=== PATIENT | female | born 1955 | race Caucasian/White ===

== ENCOUNTER 2020-01-21 12:15 | Inpatient (IN) | payer MEDICARE, MEDICAID ==
[~2020-01-21] VITALS: Ht 162.5 cm; Wt 73.6 kg
[~2020-01-21 12:15] MED LIST: LORazepam INJ 2 MG/ML (ATIVAN) VIAL ONE
[2020-01-21] MEDS ORDERED: HALOPERIDOL 5 MG/ML (HALDOL) VIAL ONE (12:21)
[2020-01-21] MEDS ORDERED: LORazepam INJ 2 MG/ML (ATIVAN) VIAL ONE (12:29)
--- NOTE | 2020-01-21 13:10 | NUR ---
1303 PREOXYGENATED VIA BVM. SPO2 98%. TV 450 FIO2 40% PEEP 7 RATE 18 1304 10MG ETOMIDATE IV PUSH 1305 50MG ROCURONIUM IV PUSH 1306 INTUBATION COMPLETE. + COLOR CHANGE. + BILAT BREATH SOUNDS. 7.5 ET TUBE 23 AT GUMS. 1310 16FR OG (LOW INTERMITTENT SUCTION).
--- NOTE | 2020-01-21 13:51 | NUR ---
1351 5MG VERSED IV PUSH PER PROVIDER VERBAL ORDER.
--- NOTE | 2020-01-21 14:18 | NUR ---
100MCG FENTANYL PUSH BY DERRICK SANCHEZ APRN
[2020-01-21] MEDS: fentaNYL DRIP PRE-MIX 250 ML IV SCH (14:33)
--- NOTE | 2020-01-21 15:00 | NUR ---
50MG ROCURONIUM IV PUSH PER PROVIDER ORDER.
[2020-01-21] MEDS ORDERED: NS 100 ML (IVPB) BAG IV ONE (16:00)
[2020-01-21] MEDS ORDERED: CATHETER FLUSH 10 ML SYR IV PRN (16:00)
[2020-01-21] MEDS ORDERED: HOLD METFORMIN - RECEIVED CONTRAST 20 ML VIAL IV SCH (16:00)
[2020-01-21] MEDS ORDERED: IOHEXOL 350 MG/ML 100 ML (OMNIPAQUE 350) VIAL IV ONE (16:00)
--- NOTE | 2020-01-21 16:02 | Diagnostic Imaging Report ---
PROCEDURE: CT head without contrast. TECHNIQUE: Multiple contiguous axial images were obtained through the brain without the use of intravenous contrast. Auto Exposure Controls were utilized during the CT exam to meet ALARA standards for radiation dose reduction. INDICATION: Altered mental status. CORRELATION is made with prior head CT from 11/06/2015. Ventricles and sulci appear stable. No sulcal effacement or midline shift is identified. No acute intra-axial or extra-axial hemorrhage is detected. Cisterns are patent. Visualized paranasal sinuses are clear. IMPRESSION: No acute intracranial process is detected. Dictated by: Dictated on workstation # [id number]
--- NOTE | 2020-01-21 16:14 | NUR ---
TERRENCE BENEDICT SPEAKING WITH PT SON AT THIS TIME.
--- NOTE | 2020-01-21 16:15 | Diagnostic Imaging Report ---
PROCEDURE: CT angiography of the chest with contrast and CT abdomen and pelvis with contrast. TECHNIQUE: Multiple contiguous axial images were obtained through the chest, abdomen and pelvis after administration of intravenous contrast. 3D MIP reconstructed CT angiography acquisitions of the aorta were then performed. Auto Exposure Controls were utilized during the CT exam to meet ALARA standards for radiation dose reduction. INDICATION: Altered mental status. COVID-19 infection in October. Abdominal distention. FINDINGS: CHEST: ET tube has tip at the level of the jose juan and near the left mainstem bronchus. Retraction of approximately 3 cm is recommended. Enteric tube courses through the esophagus and terminates in the mid stomach. No pulmonary emboli. Normal caliber thoracic aorta without dissection. No pleural effusion. No pneumothorax. Consolidations are present in the posterior aspect of both lower lobes, greater on the right. There are some groundglass opacities and interlobular septal thickening in the upper lobes. No concerning focal osseous lesion. ABDOMEN AND PELVIS: No free intraperitoneal air or fluid. Diffuse hypoattenuation of liver is indicative of hepatic steatosis. No focal mass lesion. Cholecystectomy. No biliary duct dilatation. The spleen and pancreas are normal. No adrenal mass. Kidneys enhance symmetrically without mass lesion or obstruction. The urinary bladder is partially filled with a Mcmahon catheter in place. Appendix is normal. No bowel obstruction or pericolonic inflammatory change. Ectasia of the infrarenal abdominal aorta measuring up to 2.8 cm. No dissection within the abdominal aorta. Grade 1 anterolisthesis of L5 on S1 due to severe facet osteoarthritis. Focal osseous lesions. IMPRESSION: 1. No pulmonary emboli or acute aortic syndrome. 2. ET tube has tip at the level of the jose juan. Recommend 3 cm retraction and follow-up radiograph imaging to confirm adequate position. 3. Bilateral pulmonary consolidations with scattered groundglass opacities. This may be due to sequelae of COVID-19, although superimposed bacterial infection could be present. 4. No obstructive or inflammatory process in the abdomen and pelvis. 5. Diffuse hepatic steatosis. Dictated by: Dictated on workstation # [id number]
--- NOTE | 2020-01-21 16:49 | NUR ---
Otto Waller APRN pulled ET tube back to 21 @ the gums.
[2020-01-21] MEDS ORDERED: LACTATED RINGERS 1,000 ML IV ONE (16:51)
--- NOTE | 2020-01-21 16:55 | NUR ---
100MCG FENTANYL PUSH PER VERBAL ORDER FROM PROVIDER.
[2020-01-21] MEDS: LACTATED RINGERS 1,000 ML IV SCH (17:39)
--- NOTE | 2020-01-21 17:45 | NUR ---
LEVOPHED INFUSION INTIATED AT 0.1MCG/KG/HR IN TRANSIT TO ICU6 D/T BP 83/39.
[2020-01-21] MEDS: PANTOPRAZOLE 40 MG (PROTONIX) VIAL IV SCH (17:48)
[2020-01-21] MEDS ORDERED: PIPERACILLIN/TAZO 4.5 GM/NS 100 ML IV NR ×2 (18:00)
[2020-01-21] MEDS: fentaNYL 1,250 MCG/NS 250 ML DRIP IV SCH (18:10)
[2020-01-21] MEDS ORDERED: DexMEDEtomidine PRE MIX 100 ML IV ONE (18:15)
[2020-01-21] MEDS: 1/2 NS IV SOLUTION 1,000 ML IV SCH (18:21)
--- NOTE | 2020-01-21 18:23 | NUR ---
TELE-ICU NOTIFIED X2 REGARDING PTS HYPOTENSION. DR TO ENTER NEW ORDERS. PROPOFOL ON STANDBY. IVF BOLUS INFUSING.
[2020-01-21] MEDS: DexMEDEtomidine PRE MIX 100 ML IV SCH ×2 (18:37→21:43)
--- NOTE | 2020-01-21 18:41 | NUR ---
[facility] CALLED AND WILL FAX HOME MED LIST.
--- NOTE | 2020-01-21 18:48 | NUR ---
BP 109/74, PT TRYING TO SIT UP IN BED, FIGHTING VENT. PROPOFOL RESTART AT 15MCG/KG/MIN, FENTANYL INFUSING AT 100MCG/HR, AND PRECEDEX AT 0.2MCG/KG/HR
[2020-01-21] MEDS ORDERED: FLU QUADRIvalent (3YOA+) 60 mcg/0.5 ml 2020-21 (AFLURIA) IM ONE (19:00)
[2020-01-21] MEDS ORDERED: ETOMIDATE IV SOLN 20 MG/10 ML VIAL IV ONE (20:23)
[2020-01-21] MEDS ORDERED: fentaNYL INJECTION 100 MCG/2 ML AMP IV ONE (20:23)
[2020-01-21] MEDS ORDERED: ROCURONIUM 10 MG/ML 5 ML SYRINGE IV ONE (20:23)
[2020-01-21] MEDS ORDERED: MIDAZOLAM 5 MG/5 ML (VERSED) VIAL IJ ONE (20:23)
[2020-01-21 22:24] VITALS: BP 100/62
[2020-01-22] MEDS ORDERED: LACTATED RINGERS 1,000 ML IV ONE
[2020-01-22] MEDS ORDERED: PROPOFOL DRIP (ICU) 100 ML IV ONE
[2020-01-22] MEDS ORDERED: LACTATED RINGERS 1,000 ML IV SCH
[2020-01-22] MEDS ORDERED: NOREPINEPHRINE 4 MG/250 ML 250 ML IV ONE
[2020-01-22] MEDS ORDERED: DexMEDEtomidine PRE MIX 100 ML IV ONE
[2020-01-22] MEDS: PIPERACILLIN/TAZO 4.5 GM/NS 100 ML IV SCH ×6 (00:26→17:06)
[2020-01-22] MEDS: 1/2 NS IV SOLUTION 1,000 ML IV SCH ×13 (00:27→23:30)
[2020-01-22] MEDS: DexMEDEtomidine PRE MIX 100 ML IV SCH ×5 (01:25→21:16)
[2020-01-22] MEDS: LACTATED RINGERS 1,000 ML IV SCH ×3 (02:05→17:03)
[2020-01-22 02:20] VITALS: BP 81/56
[2020-01-22] MEDS: fentaNYL 1,250 MCG/NS 250 ML DRIP IV SCH ×3 (02:40→23:40)
[2020-01-22 03:31] LABS: BASOPHILS % (AUTO) 0 % (0-10)
[2020-01-22 03:33] LABS: EOSINOPHILS # (AUTO) 0.2 10^3/uL (0.0-0.3); EOSINOPHILS % (AUTO) 3 % (0-10); HEMATOCRIT 30 % (35-52); HEMOGLOBIN 9.5 g/dL (11.5-16.0); LYMPHOCYTES # (AUTO) 1.3 10^3/uL (1.0-4.0); LYMPHOCYTES % (AUTO) 16 % (12-44); MEAN CORPUSCULAR HEMOGLOBIN 29 pg (25-34); MEAN CORPUSCULAR HGB CONC 31 g/dL (32-36); MEAN CORPUSCULAR VOLUME 91 fL (80-99); MEAN PLATELET VOLUME 10.1 fL (9.0-12.2); MONOCYTES % (AUTO) 12 % (0-12); NEUTROPHILS # (AUTO) 5.7 10^3/uL (1.8-7.8); NEUTROPHILS % (AUTO) 69 % (42-75); PLATELET COUNT 408 10^3/uL (130-400); WHITE BLOOD COUNT 8.3 10^3/uL (4.3-11.0)
[2020-01-22 03:45] LABS: CHLORIDE 113 MMOL/L (98-107); POTASSIUM 3.2 MMOL/L (3.6-5.0); SODIUM 141 MMOL/L (135-145)
[2020-01-22 03:46] LABS: CALCIUM 7.9 MG/DL (8.5-10.1)
[2020-01-22 03:47] LABS: GLUCOSE 127 MG/DL (70-105)
[2020-01-22 03:48] LABS: CARBON DIOXIDE 16 MMOL/L (21-32)
[2020-01-22 03:50] LABS: CREATININE SERUM 0.72 MG/DL (0.60-1.30); GFR ESTIMATED > 60
[2020-01-22 03:51] LABS: BUN/CREATININE RATIO 10
[2020-01-22 03:53] LABS: MAGNESIUM 1.8 MG/DL (1.6-2.4)
[2020-01-22] MEDS: POTASSIUM CL 10MEQ/50ML IVPB 50 ML IV SCH ×5 (04:42→08:21)
[2020-01-22] MEDS: KCL 20 MEQ TAB (K-DUR) PO SCH (04:43)
[2020-01-22] MEDS: MAGNESIUM 1 GM/100 ML IVPB 100 ML IV SCH (04:43)
[2020-01-22 06:00] LABS: ABG OXYGEN SATURATION 97 % (94-100); ABG PCO2 29 MMHG (35-45); ABG PH 7.43 (7.37-7.43); ABG PO2 123 MMHG (79-93); ABG TCO2 19.8 MMOL/L (21.0-31.0); ALLENS TEST POSITIVE; INSPIRED O2 50; PATIENT TEMP 35.6; VENTILATOR YES
[2020-01-22 06:43] VITALS: BP 90/53
--- NOTE | 2020-01-22 06:56 | Diagnostic Imaging Report ---
INDICATION: Dyspnea. Comparison made with prior examination of 11/06/2015. FINDINGS: Heart size normal. There is some venous congestion. There are mild patchy bilateral pulmonary infiltrates. No pleural effusion or pneumothorax. ET and NG tubes are in satisfactory position IMPRESSION: Patchy bilateral pulmonary infiltrates Mild central pulmonary venous congestion. Dictated by: Dictated on workstation # [id number]
[2020-01-22] MEDS: PANTOPRAZOLE 40 MG (PROTONIX) VIAL IV SCH ×2 (08:22→17:06)
[2020-01-22] MEDS ORDERED: LORazepam INJ 2 MG/ML (ATIVAN) VIAL ONE (09:43)
[2020-01-22 10:21] VITALS: BP 76/51
[2020-01-22] MEDS: RT-ALBUTEROL INHALER HFA (VENTOLIN HFA) 18 GM IH SCH ×3 (10:21→21:24)
[2020-01-22] MEDS ORDERED: NS IV 1000 ML 1,000 ML ONE (10:24)
--- NOTE | 2020-01-22 10:48 | History & Physical-Hospitalist ---
History of Present Illness HPI/Chief Complaint Patient is [facility] resident with history of advanced dementia who typically is reported as pleasant and cooperative. She became quite agitated screaming obscenities and was unconsolable for unknown reason. She is unable to give any history and was writhing in bed a threat to her self as well as likely staff. Emergency room physician gave Ativan initially followed by Kong but the patient remained combative and agitated. She had been diagnosed with Covid in October but did not require hospitalization at that time and was not having any infectious symptoms according to the emergency room physician. She ultimately required mechanical intubation for sedation and was transferred to the intensive care unit. Upon my arrival the patient was on propofol and fentanyl and was resting comfortably. Attempts at decreasing propofol did lead to the patient waking up and attempting to get out of bed and pull her lines out. Date Seen 01/22/20 Time Seen by a Provider: 07:30 Attending Physician Romel Talavera MD PCP Jairo Daley DO Referring Physician Date of Admission Jan 21, 2020 at 16:20 Home Medications & Allergies Home Medications Reviewed patient Home Medication Reconciliation performed by pharmacy medication reconciliations veterinary assistant technician and/or nursing. Patients Allergies have been reviewed. Allergies Allergies Coded Allergies No Known Drug Allergies (Krirohlkkw10/11/20) Past Wmnypon-Jxqqrn-Sdcdvt Hx Past Med/Social Hx: Reviewed and Corrections made Patient Social History Alcohol Use: Denies Use Recreational Drug Use: No Smoking Status: Unknown if Ever Smoked 2nd Hand Smoke Exposure: No Recent Foreign Travel: No Contact w/other who traveled: No Recent Hopitalizations: No Recent Infectious Disease Expo: Yes Immunizations Up To Date Date of Influenza Vaccine: Nov 10, 2018 Seasonal Allergies Seasonal Allergies: No Past Medical History Cardiac: High Cholesterol Neurological: Dementia Gastrointestinal: Gastroesophageal Reflux Endocrine: Hypothyroidsim HEENT: Cataract Psychosocial: Anxiety, Bipolar, Personality Disorder Family History Patient reports no known family medical history. Review of Systems Constitutional: see HPI Physical Exam Physical Exam Vital Signs Vital Signs - First Documented 01/21/20 01/21/20 01/21/20 12:15 17:15 17:30 Temp 36.7 Pulse 123 Resp 26 B/P (MAP) 129/101 (110) Pulse Ox 97 O2 Delivery OxyMask O2 Flow Rate 10.00 FiO2 50 Capillary Refill : Less Than 3 Seconds Height, Weight, BMI Height: '" Weight: lbs. oz. kg; 25.82 BMI Method: General Appearance: No Apparent Distress (Sedated on mechanical ventilation) Respiratory: Chest Non Tender, Lungs Clear, Normal Breath Sounds, No Accessory Muscle Use, No Respiratory Distress Cardiovascular: Regular Rate, Rhythm, No Edema, No Gallop, No JVD, No Murmur, Normal Peripheral Pulses Gastrointestinal: Distended (Mild soft no reaction to palpation bowel sounds hypoactive no mass organomegaly palpated) Extremity: Normal Capillary Refill, Normal Inspection, Normal Range of Motion, Non Tender, No Calf Tenderness, No Pedal Edema Results Results/Procedures Labs Laboratory Tests 01/22/20 03:20 Patient resulted labs reviewed. Assessment/Plan Admission Diagnosis 1. Severe agitated delirium patient threat to herself and others requiring sedation and mechanical ventilation. Attempts at weaning unsuccessful from propofol. No clear etiology. Patient being treated with antibiotics as she does have bibasilar infiltrates although this may be residual from previous Co vid infection. There is a concern with a mild white count elevation of the possibility of a secondary bacterial infection. Abdomen is mildly distended but decreased bowel sounds and no CT abnormalities noted we will continue to monitor for evidence for ischemia or other abdominal pathology contributing to delirium. 2. Reported Alzheimer's dementia. 3. Hypothyroidism presumed on thyroid replacement patient will be fine for several days off therapy will hold for now. Admission Status: Inpatient Order (span 2 midnights) Reason for Inpatient Admission: See above Critical Care Ventilator Management Clinical Quality Measures DVT/VTE Risk/Contraindication: Risk Factor Score Per Nursin RFS Level Per Nursing on Admit: 4+=Very High ROMEL TALAVERA MD Jan 22, 2020 10:48
--- NOTE | 2020-01-22 11:49 | Progress Note - Hospitalist ---
Subjective HPI/CC On Admission Date Seen by Provider: Jan 22, 2020 Time Seen by Provider: 11:00 Patient is [facility] resident with history of advanced dementia who typically is reported as pleasant and cooperative. She became quite agitated screaming obscenities and was unconsolable for unknown reason. She is unable to give any history and was writhing in bed a threat to her self as well as likely staff. Emergency room physician gave Ativan initially followed by Kong but the patient remained combative and agitated. She had been diagnosed with Covid in October but did not require hospitalization at that time and was not having any infectious symptoms according to the emergency room physician. She ultimately required mechanical intubation for sedation and was transferred to the intensive care unit. Upon my arrival the patient was on propofol and fentanyl and was resting comfortably. Attempts at decreasing propofol did lead to the patient waking up and attempting to get out of bed and pull her lines out. Subjective/Events-last exam Patient still agitated even on vent SBP is low hindering adequate sedation Reviewed meds and labs and imaging Focused Exam Lactate Level 01/21/20 16:55: Lactic Acid Level 0.99 01/22/20 16:17: Lactic Acid Level 0.81 Objective Exam Vital Signs Vital Signs Date Time Temp Pulse Resp B/P (MAP) Pulse Ox O2 Delivery O2 Flow Rate FiO2 01/23/20 06:00 42 18 94/57 (69) 96 Mechanical Ventilator 25.00 01/23/20 04:45 36.1 01/23/20 03:20 25 Capillary Refill : Less Than 3 Seconds General Appearance: Anxious, Chronically ill, Mild Distress Respiratory: Normal Breath Sounds, Decreased Breath Sounds Cardiovascular: Regular Rate, Rhythm Neurologic/Psychiatric: Disoriented, Other (sedated partially) Results/Procedures Lab Laboratory Tests 01/22/20 16:17 01/23/20 04:35 Patient resulted labs reviewed. Assessment/Plan Assessment and Plan Assess & Plan/Chief Complaint Assessment: Severe agitation requiring ventilator management PNA on Zosyn COVID-19 Dementia Hypothyroidism Plan: Vent management Sedation Abx Critical Care Ventilator Management Diagnosis/Problems Diagnosis/Problems (1) Ventilator dependence (2) COVID-19 (3) Dementia Clinical Quality Measures DVT/VTE Risk/Contraindication: Risk Factor Score Per Nursin RFS Level Per Nursing on Admit: 4+=Very High ENA FANG DO Jan 22, 2020 11:48
[2020-01-22 14:31] VITALS: BP 80/56
--- NOTE | 2020-01-22 15:30 | NUR ---
call placed to EICU regarding patient urine output. Put orders in for labs, et to increase fluids to 125ml/hr
[2020-01-22 16:24] LABS: HEMOGLOBIN 9.2 g/dL (11.5-16.0); MEAN PLATELET VOLUME 9.7 fL (9.0-12.2); WHITE BLOOD COUNT 8.3 10^3/uL (4.3-11.0)
[2020-01-22 16:34] LABS: CHLORIDE 116 MMOL/L (98-107); POTASSIUM 3.8 MMOL/L (3.6-5.0); SODIUM 140 MMOL/L (135-145)
[2020-01-22 16:35] LABS: CALCIUM 7.6 MG/DL (8.5-10.1)
[2020-01-22 16:36] LABS: GLUCOSE 115 MG/DL (70-105)
[2020-01-22 16:38] LABS: CARBON DIOXIDE 16 MMOL/L (21-32)
[2020-01-22 16:40] LABS: CREATININE SERUM 0.76 MG/DL (0.60-1.30); GFR ESTIMATED > 60
[2020-01-22 16:41] LABS: BUN/CREATININE RATIO 8
[2020-01-22] MEDS: fentaNYL DRIP PRE-MIX 250 ML IV SCH (18:19)
[2020-01-22 19:03] VITALS: BP 93/62
[2020-01-22 21:24] VITALS: BP 88/55
[2020-01-23] MEDS: DexMEDEtomidine PRE MIX 100 ML IV SCH ×6 (00:30→20:15)
[2020-01-23] MEDS: PIPERACILLIN/TAZO 4.5 GM/NS 100 ML IV SCH ×6 (00:46→16:02)
[2020-01-23] MEDS: LACTATED RINGERS 1,000 ML IV SCH ×3 (00:46→17:25)
[2020-01-23 03:12] LABS: ABG BASE EXCESS -14.9 MMOL/L (-2.5-2.5); ABG OXYGEN SATURATION 57 % (94-100); ABG PCO2 23 MMHG (35-45); ABG TCO2 11.4 MMOL/L (21.0-31.0)
[2020-01-23 03:13] LABS: ALLENS TEST POSITIVE; INSPIRED O2 35; PATIENT TEMP 36.1; VENTILATOR YES
[2020-01-23 03:14] LABS: ABG PH 7.28 (7.37-7.43)
[2020-01-23 03:15] LABS: ABG PO2 33 MMHG (79-93)
[2020-01-23] MEDS: RT-ALBUTEROL INHALER HFA (VENTOLIN HFA) 18 GM IH SCH ×6 (03:19→23:13)
[2020-01-23 03:20] VITALS: BP 109/61
[2020-01-23] MEDS: fentaNYL DRIP PRE-MIX 250 ML IV SCH (05:09)
[2020-01-23 05:11] LABS: BASOPHILS % (AUTO) 0 % (0-10); EOSINOPHILS # (AUTO) 0.3 10^3/uL (0.0-0.3); EOSINOPHILS % (AUTO) 3 % (0-10); HEMATOCRIT 32 % (35-52); HEMOGLOBIN 9.6 g/dL (11.5-16.0); LYMPHOCYTES # (AUTO) 1.4 10^3/uL (1.0-4.0); LYMPHOCYTES % (AUTO) 14 % (12-44); MEAN CORPUSCULAR HEMOGLOBIN 28 pg (25-34); MEAN CORPUSCULAR HGB CONC 30 g/dL (32-36); MEAN CORPUSCULAR VOLUME 94 fL (80-99); MEAN PLATELET VOLUME 11.2 fL (9.0-12.2); MONOCYTES # (AUTO) 1.4 10^3/uL (0.0-1.0); MONOCYTES % (AUTO) 13 % (0-12); NEUTROPHILS # (AUTO) 7.2 10^3/uL (1.8-7.8); NEUTROPHILS % (AUTO) 69 % (42-75); PLATELET COUNT 329 10^3/uL (130-400); WHITE BLOOD COUNT 10.4 10^3/uL (4.3-11.0)
[2020-01-23 05:31] LABS: CHLORIDE 118 MMOL/L (98-107); POTASSIUM 3.7 MMOL/L (3.6-5.0); SODIUM 143 MMOL/L (135-145)
[2020-01-23 05:32] LABS: CALCIUM 7.8 MG/DL (8.5-10.1)
[2020-01-23 05:33] LABS: GLUCOSE 115 MG/DL (70-105)
[2020-01-23 05:35] LABS: CARBON DIOXIDE 12 MMOL/L (21-32)
[2020-01-23 05:37] LABS: CREATININE SERUM 0.71 MG/DL (0.60-1.30); GFR ESTIMATED > 60; PHOSPHORUS 3.1 MG/DL (2.3-4.7)
[2020-01-23 05:38] LABS: BUN/CREATININE RATIO 8
[2020-01-23 05:39] LABS: MAGNESIUM 1.7 MG/DL (1.6-2.4)
[2020-01-23] MEDS: MAGNESIUM 1 GM/100 ML IVPB 100 ML IV SCH ×3 (06:44→08:12)
[2020-01-23] MEDS: POTASSIUM CL 10MEQ/50ML IVPB 50 ML IV SCH (06:45)
[2020-01-23] MEDS: KCL 20 MEQ TAB (K-DUR) PO SCH (06:45)
--- NOTE | 2020-01-23 06:50 | NUR ---
Reported low output for the last four hours, of 80mL. Total for the 12 hour shift is 300mL.
[2020-01-23 07:16] VITALS: BP 87/63
[2020-01-23] MEDS: PANTOPRAZOLE 40 MG (PROTONIX) VIAL IV SCH (08:02)
[2020-01-23] MEDS ORDERED: KETAMINE HCL 100 MG/ML 5 ML VIAL IM ONE (08:30)
--- NOTE | 2020-01-23 09:25 | Diagnostic Imaging Report ---
CHEST 1 VIEW, AP/PA ONLY Indication: Intubation Comparison: 01/22/2020 Findings: ET tube has tip 2.5 cm above the jose juan. Stable enteric tube coursing into the stomach. Bilateral perihilar and peripheral pulmonary opacities have not substantially changed. No pleural effusion or pneumothorax. Normal cardiomediastinal silhouette. Impression: 1. Stable support devices. 2. No change in right greater than left pulmonary opacities. Dictated by: Dictated on workstation # [id number]
[2020-01-23] MEDS: fentaNYL 1,250 MCG/NS 250 ML DRIP IV SCH ×3 (10:31→20:22)
[2020-01-23 10:43] VITALS: BP 79/60
--- NOTE | 2020-01-23 11:47 | Progress Note - Hospitalist ---
Subjective HPI/CC On Admission Date Seen by Provider: Jan 23, 2020 Time Seen by Provider: 07:50 Patient is long term resident with history of advanced dementia who typically is reported as pleasant and cooperative. She became quite agitated screaming obscenities and was unconsolable for unknown reason. She is unable to give any history and was writhing in bed a threat to her self as well as likely staff. Emergency room physician gave Ativan initially followed by Kong but the patient remained combative and agitated. She had been diagnosed with Covid in October but did not require hospitalization at that time and was not having any infectious symptoms according to the emergency room physician. She ultimately required mechanical intubation for sedation and was transferred to the intensive care unit. Upon my arrival the patient was on propofol and fentanyl and was resting comfortably. Attempts at decreasing propofol did lead to the patient waking up and attempting to get out of bed and pull her lines out. Subjective/Events-last exam Patient sedated on vent. Attempts at lightening dipper Van lead to recurrence of agitated behavior with the patient trying to climb out of bed and extubate herself. No other difficulties noted. Patient does have some diminishment in saturations when agitated only and fighting the vent. Focused Exam Lactate Level 01/21/20 16:55: Lactic Acid Level 0.99 01/22/20 16:17: Lactic Acid Level 0.81 Objective Exam Vital Signs Vital Signs Date Time Temp Pulse Resp B/P (MAP) Pulse Ox O2 Delivery O2 Flow Rate FiO2 01/23/20 11:00 49 18 85/54 (63) 96 Mechanical Ventilator 25.00 01/23/20 08:21 36 01/23/20 07:26 36.2 Capillary Refill : Less Than 3 Seconds General Appearance: No Apparent Distress Respiratory: Chest Non Tender, Lungs Clear, Normal Breath Sounds, No Accessory Muscle Use, No Respiratory Distress Cardiovascular: Regular Rate, Rhythm, No Edema, No Gallop, No JVD, No Murmur, Normal Peripheral Pulses Gastrointestinal: Distended (Mild there is no response to palpation of the abdomen the abdomen is soft bowel sounds are present today but hypoactive no organomegaly noted. No borborygmi noted.) Results/Procedures Lab Laboratory Tests 01/22/20 16:17 01/23/20 04:35 Patient resulted labs reviewed. Assessment/Plan Assessment and Plan Assess & Plan/Chief Complaint 1. Agitated delirium in an individual with underlying advanced Alzheimer's no clear etiology. Despite 48 hours dipper Van patient still agitated when it is weaned. For this reason will initiate ketamine one-time IM dose and see about ability to wean following this as we desperately need ICU space. 2. Strongly suspect this morning's ABG was venous in etiology as O2 saturations have been normal only declined per nursing staff when the patient is agitated fighting the vent during attempts to wean Diprovan. Critical Care Ventilator Management Clinical Quality Measures DVT/VTE Risk/Contraindication: Risk Factor Score Per Nursin RFS Level Per Nursing on Admit: 4+=Very High ORMEL TALAVERA MD Jan 23, 2020 11:46
[2020-01-23 15:02] VITALS: BP 85/61
[2020-01-23] MEDS ORDERED: HALOPERIDOL 5 MG/ML (HALDOL) VIAL IM ONE (15:45)
[2020-01-23] MEDS ORDERED: MIDAZOLAM DRIP PRE-MIX 100 ML IV SCH (15:45)
[2020-01-23] MEDS ORDERED: HALOPERIDOL 5 MG/ML (HALDOL) VIAL ONE (15:46)
[2020-01-23] MEDS ORDERED: MIDAZOLAM DRIP PRE-MIX 100 ML IV ONE (15:46)
[2020-01-23 18:48] VITALS: BP 101/63
[2020-01-23] MEDS: HALOPERIDOL 5 MG/ML (HALDOL) VIAL IM PRN (21:06)
[2020-01-23] MEDS: QUEtiapine 200 MG (SEROquel) TAB IMMEDIATE RELEASE PO SCH (21:06)
[2020-01-23] MEDS ORDERED: NS IV 1000 ML 1,000 ML IV SCH (21:45)
[2020-01-24] MEDS: DexMEDEtomidine PRE MIX 100 ML IV SCH ×7 (00:12→23:12)
[2020-01-24] MEDS: PIPERACILLIN/TAZO 4.5 GM/NS 100 ML IV SCH ×2 (00:12)
[2020-01-24] MEDS: RT-ALBUTEROL INHALER HFA (VENTOLIN HFA) 18 GM IH SCH ×4 (03:05→21:02)
--- NOTE | 2020-01-24 03:08 | Pulmonary Consultation ---
NAJMA ALMAZAN,MED STUDENT 01/24/20 0307: History of Present Illness History of Present Illness Date Seen by Provider: Jan 24, 2020 Time Seen by Provider: 03:00 Date of Admission History of Present Illness Patient is a 64yo female intermediate resident who presented with agitation and combativeness. She has hx of Alzheimers dementia but is reported as normally calm and cooperative. As she was a threat to herself and potentially staff, she was given Ativan and Haldol in the ED, but continued to be agitated and combative. She therefore required intubation for sedation, and was admitted to the ICU. After admission, trials of decreasing sedation were attempted but were unsuccessful due to patient attempting to pull out her IV lines and extubate herself. She was recently diagnosed with COVID-19 in October, but did not require hospitalization. Allergies and Home Medications Allergies Coded Allergies: No Known Drug Allergies (Unverified , 01/21/20) Past Plnozxd-Meumhk-Rmxqpy Hx Past Med/Social Hx: Reviewed and Corrections made Patient Social History Alcohol Use: Denies Use Recreational Drug Use: No Smoking Status: Unknown if Ever Smoked 2nd Hand Smoke Exposure: No Recent Foreign Travel: No Contact w/Someone Who Travel: No Recent Infectious Disease Expo: Yes Recent Hopitalizations: No Physical Abuse: No Sexual Abuse: No Immunizations Up To Date Date of Influenza Vaccine: Nov 10, 2018 Seasonal Allergies Seasonal Allergies: No Past Medical History Surgeries: No (UNKNOWN ) Cardiac: Yes High Cholesterol Neurological: Yes Dementia Gastrointestinal: Yes Gastroesophageal Reflux Endocrine: Yes Hypothyroidsim HEENT: Yes Cataract Psychosocial: Yes Anxiety, Bipolar, Personality Disorder Family Medical History Patient reports no known family medical history. Review of Systems Other Unable to obtain Sepsis Event Evaluation Height, Weight, BMI Height: '" Weight: lbs. oz. kg; 25.82 BMI Method: Exam Exam Vital Signs Date Time Temp Pulse Resp B/P (MAP) Pulse Ox O2 Delivery O2 Flow Rate FiO2 01/24/20 00:12 35.6 50 18 104/60 93 Mechanical Ventilator 18.00 01/23/20 23:13 72 18 91 35 01/23/20 23:00 52 17 104/562 (411) 93 Mechanical Ventilator 25.00 01/23/20 22:00 52 17 85/53 (64) 92 Mechanical Ventilator 25.00 01/23/20 21:28 95 Mechanical Ventilator 36 01/23/20 21:00 54 17 91/54 (66) 90 Mechanical Ventilator 25.00 01/23/20 20:15 35.2 83 18 91/73 97 Mechanical Ventilator 18.00 01/23/20 20:10 92 11 91/73 (79) 96 Mechanical Ventilator 25.00 01/23/20 19:43 36.0 01/23/20 19:00 43 17 104/63 (77) 94 Mechanical Ventilator 25.00 01/23/20 19:00 43 01/23/20 18:48 41 18 94 35 01/23/20 18:00 42 17 94/61 (73) 94 Mechanical Ventilator 25.00 01/23/20 17:45 42 17 96/65 (76) 93 01/23/20 17:30 44 17 98/63 (76) 93 01/23/20 17:15 42 17 92/65 (73) 93 01/23/20 17:00 45 18 92/61 (74) 93 Mechanical Ventilator 25.00 01/23/20 16:45 46 18 95/62 (75) 93 01/23/20 16:30 47 17 95/61 (70) 93 01/23/20 16:15 49 18 92/59 (74) 93 01/23/20 16:01 48 92/59 01/23/20 16:00 49 17 92/59 (72) 93 Mechanical Ventilator 25.00 01/23/20 15:55 35.6 01/23/20 15:45 52 18 91/57 (68) 93 01/23/20 15:30 52 17 75/50 (60) 94 01/23/20 15:28 52 01/23/20 15:15 49 17 94/63 (76) 94 01/23/20 15:02 48 18 94 35 01/23/20 15:00 48 17 85/61 (69) 94 Mechanical Ventilator 25.00 01/23/20 14:45 51 84/55 (61) 94 01/23/20 14:30 50 18 84/60 (68) 94 01/23/20 14:15 49 17 95/68 (77) 94 01/23/20 14:00 49 17 91/65 (74) 94 Mechanical Ventilator 25.00 01/23/20 13:44 53 17 77/48 (61) 01/23/20 13:30 51 24 78/46 (58) 94 01/23/20 13:15 53 17 75/60 (66) 90 01/23/20 13:00 48 77/46 (56) Mechanical Ventilator 25.00 01/23/20 12:45 50 17 94 01/23/20 12:36 52 01/23/20 12:30 52 17 81/52 (66) 92 01/23/20 12:15 49 17 94/55 (65) 94 01/23/20 12:00 50 17 82/51 (61) 94 Mechanical Ventilator 25.00 01/23/20 11:57 36.0 01/23/20 11:45 50 17 87/54 (65) 95 01/23/20 11:45 50 01/23/20 11:30 49 17 92/52 (67) 95 01/23/20 11:15 48 18 85/54 (64) 95 01/23/20 11:00 49 18 85/54 (63) 96 Mechanical Ventilator 25.00 01/23/20 10:45 47 18 85/50 (61) 96 01/23/20 10:43 47 18 96 35 01/23/20 10:30 49 17 79/60 (66) 96 01/23/20 10:15 48 17 95/62 (71) 96 01/23/20 10:00 48 18 91/61 (73) 96 Mechanical Ventilator 25.00 01/23/20 09:45 46 17 92/62 (72) 96 01/23/20 09:30 46 17 86/58 (67) 96 01/23/20 09:15 47 17 81/58 (66) 95 01/23/20 09:00 54 16 76/39 (46) 93 Mechanical Ventilator 25.00 01/23/20 08:45 50 18 84/59 (68) 95 01/23/20 08:30 50 17 87/57 (67) 95 01/23/20 08:21 95 Mechanical Ventilator 36 01/23/20 08:15 53 17 93/56 (66) 95 01/23/20 08:02 53 01/23/20 08:00 55 18 80/54 (62) 95 Mechanical Ventilator 25.00 01/23/20 07:45 47 17 97/64 (77) 95 01/23/20 07:30 46 17 95/62 (71) 95 01/23/20 07:26 36.2 01/23/20 07:16 46 18 96 36 01/23/20 07:15 50 18 87/63 (72) 97 01/23/20 07:00 55 01/23/20 07:00 46 17 86/58 (73) 91 Mechanical Ventilator 25.00 01/23/20 06:45 54 17 87/61 (70) 91 01/23/20 06:30 55 17 95 01/23/20 06:15 38 17 94/57 (71) 96 01/23/20 06:00 42 18 94/57 (69) 96 Mechanical Ventilator 25.00 01/23/20 05:10 42 109/61 01/23/20 05:00 44 17 89/59 (69) 96 Mechanical Ventilator 25.00 01/23/20 04:45 36.1 47 18 94/57 96 Mechanical Ventilator 18.00 01/23/20 04:00 40 17 99/59 (72) 95 Mechanical Ventilator 25.00 01/23/20 03:20 42 18 95 25 01/23/20 03:11 94 Mechanical Ventilator 25 01/23/20 03:10 36.1 I & O 01/24/20 07:00 Intake Total 1050 ml Output Total 1880 ml Balance -830 ml Height & Weight Height: '" Weight: lbs. oz. kg; 25.82 BMI Method: General Appearance: No Apparent Distress Respiratory: Chest Non Tender, Lungs Clear, Normal Breath Sounds, No Accessory Muscle Use, No Respiratory Distress Cardiovascular: No Edema, No Gallop, No JVD, No Murmur, Normal Peripheral Pulses, Bradycardia Capillary Refill: Less Than 3 Seconds Extremity: Normal Capillary Refill, Normal Inspection, Normal Range of Motion, No Pedal Edema Neurologic/Psychiatric: Disoriented, Other (sedated on vent) Results Lab Laboratory Tests 01/22/20 03:20 01/22/20 16:17 01/23/20 04:35 Assessment/Plan Assessment/Plan Agitation requiring sedation -on Versed and Precedex -on Seroquel -on vent FiO2 35%, PEEP of 5 -attempt to wean sedation PNA -bilateral pulmonary opacities on CXR -COVID-19 diagnosed on October, possible residual findings -on Zosyn -check PCT Hypothyroidism -continue to hold home medERIK Gaitan DO 01/24/20 0546: Allergies and Home Medications Allergies Coded Allergies: No Known Drug Allergies (Unverified , 01/21/20) Past Obzctst-Rcmouv-Mubmwo Hx Family Medical History Patient reports no known family medical history. Assessment/Plan Assessment/Plan Agitation requiring sedation -on Versed and Precedex -EICU managed pt through the weekend. -on Seroquel -on vent FiO2 35%, PEEP of 5 -Will do vent weaning today -CXR and labs reviewed Acute respiratory failure -Continue vent -Check DDIMer and PCT -Intubated on 01/20 Nonanion gapped metabolic acidosis -Give 2 amps of bicarb PNA -bilateral pulmonary opacities on CXR -COVID-19 diagnosed on October, possible residual findings -on Zosyn -check PCT Hypothyroidism -Restart home synthroid DVT PPx -Start Lovenox NAJMA ALMAZAN,MED STUDENT Jan 24, 2020 03:07 ERIK VERDUZCO DO Jan 24, 2020 05:46
[2020-01-24 03:16] LABS: BASOPHILS % (AUTO) 0 % (0-10); EOSINOPHILS # (AUTO) 0.2 10^3/uL (0.0-0.3); EOSINOPHILS % (AUTO) 2 % (0-10); HEMATOCRIT 33 % (35-52); HEMOGLOBIN 9.5 g/dL (11.5-16.0); LYMPHOCYTES # (AUTO) 0.9 10^3/uL (1.0-4.0); LYMPHOCYTES % (AUTO) 8 % (12-44); MEAN CORPUSCULAR HEMOGLOBIN 28 pg (25-34); MEAN CORPUSCULAR HGB CONC 28 g/dL (32-36); MEAN CORPUSCULAR VOLUME 97 fL (80-99); MEAN PLATELET VOLUME 10.5 fL (9.0-12.2); MONOCYTES # (AUTO) 1.3 10^3/uL (0.0-1.0); MONOCYTES % (AUTO) 12 % (0-12); NEUTROPHILS # (AUTO) 8.2 10^3/uL (1.8-7.8); NEUTROPHILS % (AUTO) 77 % (42-75); PLATELET COUNT 320 10^3/uL (130-400); WHITE BLOOD COUNT 10.7 10^3/uL (4.3-11.0)
[2020-01-24 03:24] LABS: CHLORIDE 121 MMOL/L (98-107); POTASSIUM 3.6 MMOL/L (3.6-5.0); SODIUM 144 MMOL/L (135-145)
[2020-01-24 03:25] LABS: CALCIUM 7.5 MG/DL (8.5-10.1)
[2020-01-24 03:26] LABS: GLUCOSE 110 MG/DL (70-105)
[2020-01-24 03:27] LABS: CARBON DIOXIDE 14 MMOL/L (21-32)
[2020-01-24 03:29] LABS: PHOSPHORUS 3.9 MG/DL (2.3-4.7)
[2020-01-24 03:30] LABS: CREATININE SERUM 0.66 MG/DL (0.60-1.30); GFR ESTIMATED > 60
[2020-01-24] MEDS: LACTATED RINGERS 1,000 ML IV SCH ×2 (03:30→22:52)
[2020-01-24 03:31] LABS: BUN/CREATININE RATIO 8
[2020-01-24 03:32] LABS: MAGNESIUM 1.9 MG/DL (1.6-2.4)
[2020-01-24] MEDS: POTASSIUM CL 10MEQ/50ML IVPB 50 ML IV SCH ×11 (03:33→16:45)
[2020-01-24] MEDS: MAGNESIUM 1 GM/100 ML IVPB 100 ML IV SCH (03:33)
[2020-01-24] MEDS: KCL 20 MEQ TAB (K-DUR) PO SCH (03:34)
[2020-01-24 04:26] LABS: ABG BASE EXCESS -8.3 MMOL/L (-2.5-2.5); ABG OXYGEN SATURATION 91 % (94-100); ABG PCO2 36 MMHG (35-45); ABG PO2 72 MMHG (79-93); ABG TCO2 18.3 MMOL/L (21.0-31.0)
[2020-01-24 04:27] LABS: ALLENS TEST POSITIVE; INSPIRED O2 35; PATIENT TEMP 36.3; VENTILATOR YES
[2020-01-24 04:28] LABS: ABG PH 7.29 (7.37-7.43)
[2020-01-24] MEDS ORDERED: SODIUM BICARB 8.4% 50 MEQ/50 ML VIAL IV ONE (05:45)
--- NOTE | 2020-01-24 07:30 | NUR ---
THIS NURSE NOTIFIED DR VERDUZCO PT IS VERY AGITATED THIS MORNING AND IS NOT TOLERATING VENT. ORDER GIVEN TO START PROPOFOL AND KEEP PRECEDEX. WILL CONTINUE TO MONITOR.
--- NOTE | 2020-01-24 08:02 | Progress Note - Hospitalist ---
Subjective HPI/CC On Admission Date Seen by Provider: Jan 24, 2020 Time Seen by Provider: 07:56 Patient is snf resident with history of advanced dementia who typically is reported as pleasant and cooperative. She became quite agitated screaming obscenities and was unconsolable for unknown reason. She is unable to give any history and was writhing in bed a threat to her self as well as likely staff. Emergency room physician gave Ativan initially followed by Kong but the patient remained combative and agitated. She had been diagnosed with Covid in October but did not require hospitalization at that time and was not having any infectious symptoms according to the emergency room physician. She ultimately required mechanical intubation for sedation and was transferred to the intensive care unit. Upon my arrival the patient was on propofol and fentanyl and was resting comfortably. Attempts at decreasing propofol did lead to the patient waking up and attempting to get out of bed and pull her lines out. Subjective/Events-last exam Pt remains sedated and on a vent. Agitation remains when sedation weaned. Hopeful to wean tomorrow per RN report. Focused Exam Lactate Level 01/21/20 16:55: Lactic Acid Level 0.99 01/22/20 16:17: Lactic Acid Level 0.81 Objective Exam Vital Signs Vital Signs Date Time Temp Pulse Resp B/P (MAP) Pulse Ox O2 Delivery O2 Flow Rate FiO2 01/24/20 07:51 35.7 01/24/20 06:26 54 18 94 35 01/24/20 06:00 116/61 (79) Mechanical Ventilator 25.00 Capillary Refill : Less Than 3 Seconds General Appearance: Chronically ill, Other (sedated on vent) Respiratory: Lungs Clear, Other (on vent) Cardiovascular: Regular Rate, Rhythm, No Murmur Gastrointestinal: Normal Bowel Sounds, Soft Neurologic/Psychiatric: Other (sedated, appears comfortable) Results/Procedures Lab Laboratory Tests 01/24/20 03:05 Patient resulted labs reviewed. Assessment/Plan Assessment and Plan Assess & Plan/Chief Complaint Agitated delirium with inability to protect airway Advanced dementia Remains on vent Pulm consulted, appreciate recs Hopeful to wean tomorrow No contacts listed in computer, I'm unsure who her decision maker is at this point, will discussed with social worker delinquency prevention Continue Seroquel Bilateral pneumonia On zosyn but procal negative- will DC Enzo Had COVID in October, CXR findings likely residual from that Hypothyroidism Continue Synthroid DVT ppx: Lovenox Critical Care Ventilator Management Clinical Quality Measures DVT/VTE Risk/Contraindication: Risk Factor Score Per Nursin RFS Level Per Nursing on Admit: 4+=Very High JOSE DUNNE MD Jan 24, 2020 08:01
[2020-01-24] MEDS: FAMOTIDINE 20MG/2ML IV (PEPCID) IVP SCH ×2 (08:18→19:52)
[2020-01-24] MEDS: ENOXAPARIN 40 MG/0.4 ML (LOVENOX) SYR SC SCH (08:18)
--- NOTE | 2020-01-24 08:34 | Diagnostic Imaging Report ---
Indication: Dyspnea. Compared: 01/23/2020 Findings: ET tube tip is in the lower thoracic trachea approaching the jose juan. As head is currently positioned, the tube withdrawal of about 2 cm would be suggested to prevent spontaneous mainstem intubation with neck flexion. An OG catheter goes beneath the diaphragm into the stomach. There are bilateral infiltrates greater right having mildly increased. Impression: ET tube is deep approaching the jose juan, 2 cm withdrawal suggested, infiltrates predominantly in the right lung have increased. Dictated by: Dictated on workstation # [id number]
[2020-01-24] MEDS ORDERED: TRAZ150T72 PO (08:55)
[2020-01-24] MEDS ORDERED: PANT40TA2 PO (08:55)
[2020-01-24] MEDS ORDERED: ZINC50TA51 PO (08:55)
[2020-01-24] MEDS ORDERED: LITH300C PO (08:55)
[2020-01-24] MEDS ORDERED: MIRT15TA6 PO (08:55)
[2020-01-24] MEDS ORDERED: MELA5TAB14 PO (08:55)
[2020-01-24] MEDS ORDERED: ACET325C7 PO ×2 (08:55)
[2020-01-24] MEDS ORDERED: PHEN-826 PO (08:55)
[2020-01-24] MEDS ORDERED: HYDR-3584 PO (08:55)
[2020-01-24] MEDS ORDERED: LORA10TA7 PO (08:55)
[2020-01-24] MEDS ORDERED: LITH300T3 PO (08:55)
[2020-01-24] MEDS ORDERED: QUET50TA PO (08:55)
[2020-01-24] MEDS ORDERED: LOPE2CAP14 PO (08:55)
[2020-01-24] MEDS ORDERED: CHOL500050 PO (08:55)
[2020-01-24] MEDS ORDERED: ALPR0.25 PO (08:55)
[2020-01-24] MEDS ORDERED: ASCO-262 PO (08:55)
[2020-01-24] MEDS ORDERED: FAMO20TA3 PO (08:55)
[2020-01-24] MEDS ORDERED: ASPI-999 PO (08:55)
[2020-01-24] MEDS ORDERED: LEVO125C4 PO (08:55)
--- NOTE | 2020-01-24 08:58 | NUR ---
MED REC WAS ENTERED USING THE MAR FROM [facility] [place]
--- NOTE | 2020-01-24 09:35 | NUR ---
I spoke to Nikki at [facility] and Patient meets all criteria to stay out of isolation for COVID.
[2020-01-24] MEDS: LEVOTHYROXINE 125 MCG (LEVOTHROID) TABLET PO SCH (10:58)
--- NOTE | 2020-01-24 12:50 | Pulmonary Consultation ---
History of Present Illness History of Present Illness Date Seen by Provider: Jan 24, 2020 Time Seen by Provider: 12:44 Date of Admission Allergies and Home Medications Allergies Coded Allergies: No Known Drug Allergies (Unverified , 01/21/20) Home Medications Acetaminophen 325 Mg Capsule, 650 MG PO TID PRN for PAIN-MILD (1-4), (Reported) Acetaminophen 325 Mg Capsule, 650 MG PO Q4H PRN for T>99.0, (Reported) Alprazolam 0.25 Mg Tablet, 0.25 MG PO TID, (Reported) Ascorbate Calcium 500 Mg Tablet, 500 MG PO DAILY, (Reported) Aspirin 81 Mg Tab.chew, 81 MG PO DAILY, (Reported) Cholecalciferol (Vitamin D3) 125 Mcg Capsule, 125 MCG PO BID, (Reported) Famotidine 20 Mg Tablet, 20 MG PO BID, (Reported) Hydroxyzine HCl 10 Mg Tablet, 10 MG PO BID, (Reported) Levothyroxine Sodium 125 Mcg Capsule, 125 MCG PO DAILY, (Reported) [place] Carbonate 300 Mg Tablet, 300 MG PO BID, (Reported) Loperamide HCl 2 Mg Capsule, 2-4 MG PO UD PRN for DIARRHEA, (Reported) TAKE 2 (2MG) CAPS AFTER 1ST LOOSE STOOL AND MAY TAKE 1 TAB NEEDED FOR ADDITIONAL LOOSE STOOLS. MAX IS 4 DOSES PER DAY Loratadine 10 Mg Tablet, 10 MG PO DAILY, (Reported) Melatonin 5 Mg Tablet, 5 MG PO HS, (Reported) Mirtazapine 15 Mg Tablet, 15 MG PO HS, (Reported) Pantoprazole Sodium 40 Mg Tablet.dr, 40 MG PO DAILY, (Reported) GIVE 30 MINUTES PRIOR TO AM MEAL Phenazopyridine HCl 100 Mg Tablet, 100 MG PO TIDWM, (Reported) Quetiapine Fumarate 50 Mg Tablet, 50 MG PO DAILY, (Reported) Trazodone HCl 150 Mg Tablet, 75 MG PO HS, (Reported) Zinc Amino Acid Chelate 50 Mg Tablet, 50 MG PO DAILY, (Reported) Past Zojwyxy-Loybdk-Zypkqo Hx Past Med/Social Hx: Reviewed and Corrections made Patient Social History Alcohol Use: Denies Use Recreational Drug Use: No Smoking Status: Unknown if Ever Smoked 2nd Hand Smoke Exposure: No Recent Foreign Travel: No Contact w/Someone Who Travel: No Recent Infectious Disease Expo: Yes Recent Hopitalizations: No Physical Abuse: No Sexual Abuse: No Immunizations Up To Date Date of Influenza Vaccine: Nov 10, 2018 Seasonal Allergies Seasonal Allergies: No Past Medical History Surgeries: No (UNKNOWN ) Cardiac: Yes High Cholesterol Neurological: Yes Dementia Gastrointestinal: Yes Gastroesophageal Reflux Endocrine: Yes Hypothyroidsim HEENT: Yes Cataract Psychosocial: Yes Anxiety, Bipolar, Personality Disorder Family Medical History Patient reports no known family medical history. Review of Systems Time Seen by Provider: 12:50 Sepsis Event Evaluation Height, Weight, BMI Height: '" Weight: lbs. oz. kg; 25.82 BMI Method: Exam Exam Vital Signs Date Time Temp Pulse Resp B/P (MAP) Pulse Ox O2 Delivery O2 Flow Rate FiO2 01/24/20 11:44 36.2 01/24/20 11:26 135/86 01/24/20 09:00 93 Mechanical Ventilator 36 01/24/20 08:18 124/65 01/24/20 08:10 80 21 125/98 91 01/24/20 07:51 35.7 01/24/20 06:40 57 01/24/20 06:26 54 18 94 35 01/24/20 06:00 46 17 116/61 (79) 94 Mechanical Ventilator 25.00 01/24/20 05:00 43 17 115/62 (79) 93 Mechanical Ventilator 25.00 01/24/20 04:06 36.3 57 18 99/68 93 Mechanical Ventilator 18.00 01/24/20 04:00 62 18 99/68 (78) 93 Mechanical Ventilator 25.00 01/24/20 03:06 51 18 93 35 01/24/20 03:00 61 16 112/60 (77) 93 Mechanical Ventilator 25.00 01/24/20 02:00 49 18 119/65 (83) 93 Mechanical Ventilator 25.00 01/24/20 01:00 54 18 111/67 (82) 92 Mechanical Ventilator 25.00 01/24/20 01:00 54 01/24/20 00:12 35.6 50 18 104/60 93 Mechanical Ventilator 18.00 01/24/20 00:00 56 17 104/60 (75) 93 Mechanical Ventilator 25.00 01/23/20 23:13 72 18 91 35 01/23/20 23:00 52 17 104/62 (76) 93 Mechanical Ventilator 25.00 01/23/20 22:00 52 17 85/53 (64) 92 Mechanical Ventilator 25.00 01/23/20 21:28 95 Mechanical Ventilator 36 01/23/20 21:00 54 17 91/54 (66) 90 Mechanical Ventilator 25.00 01/23/20 20:15 35.2 83 18 91/73 97 Mechanical Ventilator 18.00 01/23/20 20:10 92 11 91/73 (79) 96 Mechanical Ventilator 25.00 01/23/20 19:43 36.0 01/23/20 19:00 43 17 104/63 (77) 94 Mechanical Ventilator 25.00 01/23/20 19:00 43 01/23/20 18:48 41 18 94 35 01/23/20 18:00 42 17 94/61 (73) 94 Mechanical Ventilator 25.00 01/23/20 17:45 42 17 96/65 (76) 93 01/23/20 17:30 44 17 98/63 (76) 93 01/23/20 17:15 42 17 92/65 (73) 93 01/23/20 17:00 45 18 92/61 (74) 93 Mechanical Ventilator 25.00 01/23/20 16:45 46 18 95/62 (75) 93 01/23/20 16:30 47 17 95/61 (70) 93 01/23/20 16:15 49 18 92/59 (74) 93 01/23/20 16:01 48 92/59 01/23/20 16:00 49 17 92/59 (72) 93 Mechanical Ventilator 25.00 01/23/20 15:55 35.6 01/23/20 15:45 52 18 91/57 (68) 93 01/23/20 15:30 52 17 75/50 (60) 94 01/23/20 15:28 52 01/23/20 15:15 49 17 94/63 (76) 94 01/23/20 15:02 48 18 94 35 01/23/20 15:00 48 17 85/61 (69) 94 Mechanical Ventilator 25.00 01/23/20 14:45 51 84/55 (61) 94 01/23/20 14:30 50 18 84/60 (68) 94 01/23/20 14:15 49 17 95/68 (77) 94 01/23/20 14:00 49 17 91/65 (74) 94 Mechanical Ventilator 25.00 01/23/20 13:44 53 17 77/48 (61) 01/23/20 13:30 51 24 78/46 (58) 94 01/23/20 13:15 53 17 75/60 (66) 90 01/23/20 13:00 48 77/46 (56) Mechanical Ventilator 25.00 01/23/20 12:45 50 17 94 I & O 01/24/20 07:00 Intake Total 2370 ml Output Total 2730 ml Balance -360 ml Height & Weight Height: '" Weight: lbs. oz. kg; 25.82 BMI Method: General Appearance: Chronically ill, Other (sedated on vent) Respiratory: Lungs Clear, Other (on vent) Cardiovascular: Regular Rate, Rhythm, No Murmur Capillary Refill: Less Than 3 Seconds Extremity: Normal Capillary Refill, Normal Inspection, Normal Range of Motion, No Pedal Edema Neurologic/Psychiatric: Other (sedated, appears comfortable) Results Lab Laboratory Tests 01/22/20 16:17 01/23/20 04:35 01/24/20 03:05 Assessment/Plan Assessment/Plan Acute respiratory failure -Intubated for airway protection secondary to sedation and agitation. Agitated delirium with inability to protect airway Advanced dementia Continue Seroquel Bilateral pneumonia DC Enzo Had COVID in October, CXR findings likely residual from that Hypothyroidism Continue Synthroid DVT ppx: ERIK Ledesma DO Jan 24, 2020 12:50
[2020-01-24] MEDS ORDERED: FUROSEMIDE 40 MG/4 ML INJ (LASIX) IVP NR (13:00)
--- NOTE | 2020-01-24 14:17 | NUR ---
THIS NURSE UPDATED THE SON ERIK ON PT CONDITION.
--- NOTE | 2020-01-24 15:16 | NUR ---
RT DEFLATED CUFF AND ADVANCED CUFF TO 25 AT THE LIP. THEN REINFLATED CUFF. PER DR. HITCHCOCK ORDERS Addendum: 01/24/20 at 1517 by DALIA RESENDIZ RT Amended: Links added.
--- NOTE | 2020-01-24 15:59 | Diagnostic Imaging Report ---
INDICATION: Respiratory failure EXAM: Portable chest at 3:49 PM FINDINGS: The ET tube tip is just above the jose juan. NG tube appears to enter the stomach. Heart size and pulmonary vascularity are normal. There is some right perihilar infiltrate that appears similar to the previous day. There is no effusion or pneumothorax. IMPRESSION: Right perihilar infiltrate appears stable compared to the previous day. Dictated by: Dictated on workstation # [id number]
[2020-01-24] MEDS: PANTOPRAZOLE 40 MG (PROTONIX) VIAL IV SCH ×2 (17:36→17:47)
--- NOTE | 2020-01-24 17:42 | NUR ---
CM/SS: Telephone call to son Hal Moreno - [phone] - son of pt. Introducing myself to him and role in pts' discharge. Son lives in [facility] and he would like for pt to be placed near him, however he knows that it may be hard due to bed availability. He is open at this time for find any placement that can meet her needs. Son is hopeful and just wants pt to get better. This worker will keep son in loop on placement options and possibilities.
[2020-01-24] MEDS: HALOPERIDOL 5 MG/ML (HALDOL) VIAL IM PRN (19:52)
[2020-01-24] MEDS: QUEtiapine 200 MG (SEROquel) TAB IMMEDIATE RELEASE PO SCH (19:53)
[2020-01-25 01:02] VITALS: BP 105/69
[2020-01-25] MEDS: RT-ALBUTEROL INHALER HFA (VENTOLIN HFA) 18 GM IH SCH ×3 (01:02→13:14)
[2020-01-25] MEDS: DexMEDEtomidine PRE MIX 100 ML IV SCH ×4 (03:06→15:37)
[2020-01-25 03:17] LABS: ABG BASE EXCESS -0.9 MMOL/L (-2.5-2.5); ABG OXYGEN SATURATION 94 % (94-100); ABG PCO2 33 MMHG (35-45); ABG PH 7.45 (7.37-7.43); ABG PO2 69 MMHG (79-93); ABG TCO2 23.6 MMOL/L (21.0-31.0)
[2020-01-25 03:19] LABS: ALLENS TEST YES-POS; INSPIRED O2 35%; PATIENT TEMP NOT INDICATED; VENTILATOR YES
[2020-01-25 03:20] LABS: BASOPHILS % (AUTO) 0 % (0-10); EOSINOPHILS # (AUTO) 0.2 10^3/uL (0.0-0.3); EOSINOPHILS % (AUTO) 2 % (0-10); HEMATOCRIT 31 % (35-52); HEMOGLOBIN 9.8 g/dL (11.5-16.0); LYMPHOCYTES # (AUTO) 1.2 10^3/uL (1.0-4.0); LYMPHOCYTES % (AUTO) 14 % (12-44); MEAN CORPUSCULAR HEMOGLOBIN 28 pg (25-34); MEAN CORPUSCULAR HGB CONC 31 g/dL (32-36); MEAN CORPUSCULAR VOLUME 91 fL (80-99); MEAN PLATELET VOLUME 10.3 fL (9.0-12.2); MONOCYTES # (AUTO) 0.8 10^3/uL (0.0-1.0); MONOCYTES % (AUTO) 9 % (0-12); NEUTROPHILS # (AUTO) 6.5 10^3/uL (1.8-7.8); NEUTROPHILS % (AUTO) 74 % (42-75); PLATELET COUNT 404 10^3/uL (130-400); WHITE BLOOD COUNT 8.7 10^3/uL (4.3-11.0)
[2020-01-25 03:34] LABS: CHLORIDE 106 MMOL/L (98-107); POTASSIUM 2.9 MMOL/L (3.6-5.0); SODIUM 140 MMOL/L (135-145)
[2020-01-25 03:35] LABS: CALCIUM 7.6 MG/DL (8.5-10.1)
[2020-01-25 03:36] LABS: GLUCOSE 95 MG/DL (70-105)
[2020-01-25 03:38] LABS: CARBON DIOXIDE 19 MMOL/L (21-32)
[2020-01-25 03:40] LABS: CREATININE SERUM 0.67 MG/DL (0.60-1.30); GFR ESTIMATED > 60; PHOSPHORUS 2.9 MG/DL (2.3-4.7)
[2020-01-25 03:41] LABS: BUN/CREATININE RATIO 4
[2020-01-25 03:42] LABS: MAGNESIUM 1.6 MG/DL (1.6-2.4)
--- NOTE | 2020-01-25 03:48 | Pulmonary Progress Note ---
NAJMA ALMAZAN,MED STUDENT 01/25/20 0348: Subjective Date Seen by a Provider: Jan 25, 2020 Time Seen by a Provider: 03:30 Subjective/Events-last exam Sedated on vent, FiO2 35%, PEEP of 5 Sepsis Event Evaluation Height, Weight, BMI Height: '" Weight: lbs. oz. kg; 25.82 BMI Method: Focused Exam Lactate Level 01/22/20 16:17: Lactic Acid Level 0.81 Exam Exam Vital Signs Date Time Temp Pulse Resp B/P (MAP) Pulse Ox O2 Delivery O2 Flow Rate FiO2 01/25/20 03:06 63 92 Mechanical Ventilator 35.00 01/25/20 01:02 66 18 92 35 01/25/20 01:00 64 01/25/20 01:00 64 18 105/69 (81) 92 Mechanical Ventilator 25.00 01/25/20 00:00 69 18 110/69 (83) 92 Mechanical Ventilator 25.00 01/24/20 23:12 67 18 112/65 93 Mechanical Ventilator 35.00 01/24/20 23:00 65 17 112/65 (81) 93 Mechanical Ventilator 25.00 01/24/20 22:00 68 16 104/66 (79) 92 Mechanical Ventilator 25.00 01/24/20 21:02 69 18 92 35 01/24/20 21:00 92 Mechanical Ventilator 35 01/24/20 21:00 69 18 101/67 (78) 92 Mechanical Ventilator 25.00 01/24/20 20:00 72 18 92/66 (75) 91 Mechanical Ventilator 25.00 01/24/20 19:53 76 109/84 01/24/20 19:52 76 18 109/84 92 Mechanical Ventilator 35.00 01/24/20 19:45 37.0 01/24/20 19:45 90 19 109/84 (95) 92 Mechanical Ventilator 25.00 01/24/20 19:30 84 18 108/74 (87) 92 Mechanical Ventilator 25.00 01/24/20 19:15 129 33 124/109 (114) 92 Mechanical Ventilator 25.00 01/24/20 19:00 123 45 120/97 (107) 92 Mechanical Ventilator 25.00 01/24/20 19:00 123 01/24/20 18:13 85 30 93 35 01/24/20 18:11 63 18 88/66 (73) 95 Mechanical Ventilator 25.00 01/24/20 17:14 62 17 102/70 (81) 94 Mechanical Ventilator 25.00 01/24/20 16:00 62 17 102/71 (81) 94 Mechanical Ventilator 25.00 01/24/20 15:49 36.2 01/24/20 15:01 66 20 94 35 01/24/20 15:00 62 17 92/64 (73) 95 Mechanical Ventilator 25.00 01/24/20 14:53 111/69 01/24/20 14:52 111/69 01/24/20 14:00 58 17 124/85 (98) 95 Mechanical Ventilator 25.00 01/24/20 13:00 48 17 117/78 (91) 94 Mechanical Ventilator 25.00 01/24/20 12:31 59 01/24/20 12:00 56 17 127/77 (94) 95 Mechanical Ventilator 25.00 01/24/20 11:44 36.2 01/24/20 11:26 135/86 01/24/20 11:00 62 18 94 35 01/24/20 11:00 47 17 125/77 (93) 95 Mechanical Ventilator 25.00 01/24/20 10:00 51 18 121/77 (92) 94 Mechanical Ventilator 25.00 01/24/20 09:00 93 Mechanical Ventilator 36 01/24/20 09:00 110 22 139/86 (103) 92 Mechanical Ventilator 25.00 01/24/20 08:18 124/65 01/24/20 08:10 80 21 125/98 91 01/24/20 08:00 59 17 125/98 (107) 92 Mechanical Ventilator 25.00 01/24/20 07:51 35.7 01/24/20 07:00 49 17 120/61 (80) 90 Mechanical Ventilator 25.00 01/24/20 06:40 57 01/24/20 06:26 54 18 94 35 01/24/20 06:00 46 17 116/61 (79) 94 Mechanical Ventilator 25.00 01/24/20 05:00 43 17 115/62 (79) 93 Mechanical Ventilator 25.00 01/24/20 04:06 36.3 57 18 99/68 93 Mechanical Ventilator 18.00 01/24/20 04:00 62 18 99/68 (78) 93 Mechanical Ventilator 25.00 I & O 01/25/20 07:00 Intake Total 620 ml Output Total 6000 ml Balance -5380 ml Height & Weight Height: '" Weight: lbs. oz. kg; 25.82 BMI Method: General Appearance: No Apparent Distress, Chronically ill, Other (sedated on vent) Respiratory: Lungs Clear, Other (on vent) Cardiovascular: Regular Rate, Rhythm, No Murmur Capillary Refill: Less Than 3 Seconds Extremity: Normal Capillary Refill, Normal Inspection, Normal Range of Motion, No Pedal Edema Neurologic/Psychiatric: Other (sedated on vent) Results Lab Laboratory Tests 01/23/20 04:35 01/24/20 03:05 01/25/20 03:13 Assessment/Plan Assessment/Plan Agitation requiring sedation -on Propofol and Precedex -on Seroquel -on vent FiO2 35%, PEEP of 5 -Will do vent weaning today -CXR and labs reviewed Acute respiratory failure -Continue vent -D-dimer mildly elevated -Intubated on 01/20 Nonanion gapped metabolic acidosis -resolved -bicarb discontinued -on LR at 30/hr PNA -bilateral pulmonary opacities on CXR -COVID-19 diagnosed on October, possible residual findings -on Zosyn -PCT normal Hypothyroidism -Restart home synthroid DVT PPx -Start Lovenox HAL PARK DO 01/25/20 0511: Assessment/Plan Assessment/Plan Agitation requiring sedation -on Propofol and Precedex -If pt does not transfer to [facility] today will proceed with vent weaning. -on vent FiO2 35%, PEEP of 5 decrease VT to 400 -Will do vent weaning today -CXR and labs reviewed Psychosis -give 2mg of Risperadol now --on Seroquel Acute respiratory failure -Continue vent -D-dimer mildly elevated -Intubated on 01/20 Nonanion gapped metabolic acidosis -resolved -on LR at 30/hr PNA -bilateral pulmonary opacities on CXR -COVID-19 diagnosed on October, possible residual findings -on Zosyn -PCT normal Hypothyroidism -Restart home synthroid DVT PPx -Start Lovenox Supervisory-Addendum Brief Verification & Attestation Participated in pt care: history, MDM, physical Personally performed: exam, history, MDM, supervision of care Care discussed with: Medical Student Procedures: n/a Verification and Attestation of Medical Student E/M Service A medical student performed and documented this service in my presence. I reviewed and verified all information documented by the medical student and made modifications to such information, when appropriate. I personally performed the physical exam and medical decision making. Hal Park, Jan 25, 2020,05:16 NAJMA ALMAZAN,MED STUDENT Jan 25, 2020 03:48 HAL PARK DO Jan 25, 2020 05:11
[2020-01-25] MEDS: POTASSIUM CL 10MEQ/50ML IVPB 50 ML IV SCH ×7 (04:22→14:28)
[2020-01-25] MEDS: KCL 20 MEQ TAB (K-DUR) PO SCH (04:23)
[2020-01-25] MEDS: MAGNESIUM 1 GM/100 ML IVPB 100 ML IV SCH ×3 (04:23→04:47)
[2020-01-25] MEDS ORDERED: FUROSEMIDE 40 MG/4 ML INJ (LASIX) IVP ONE (05:15)
[2020-01-25] MEDS ORDERED: risperiDONE 2 MG (RisperDAL) TAB PO ONE (05:15)
[2020-01-25] MEDS ORDERED: risperiDONE 2 MG (RisperDAL) TAB ONE (05:17)
[2020-01-25] MEDS ORDERED: FUROSEMIDE 40 MG/4 ML INJ (LASIX) ONE (05:17)
[2020-01-25] MEDS: LEVOTHYROXINE 125 MCG (LEVOTHROID) TABLET PO SCH (05:24)
[2020-01-25 06:47] VITALS: BP 88/62
[2020-01-25] MEDS ORDERED: POTASSIUM CL 10MEQ/50ML IVPB 50 ML IV ONE (08:30)
[2020-01-25] MEDS: FAMOTIDINE 20MG/2ML IV (PEPCID) IVP SCH (08:48)
--- NOTE | 2020-01-25 08:48 | Diagnostic Imaging Report ---
INDICATION: Shortness of breath Portable chest 4:50 AM There is an ET tube projecting over the trachea. NG tube projects over the stomach. There is infiltrate present in the right lower lung and possibly the right apex. There is no effusion. IMPRESSION: Alveolar infiltrates right lung suspicious for pneumonia. This appears slightly worse compared to the previous day. Dictated by: Dictated on workstation # [id number]
[2020-01-25] MEDS: ENOXAPARIN 40 MG/0.4 ML (LOVENOX) SYR SC SCH (08:49)
[2020-01-25] MEDS ORDERED: POTASSIUM CL 10MEQ/50ML IVPB 50 ML IV SCH (09:30)
[2020-01-25] MEDS: HALOPERIDOL 5 MG/ML (HALDOL) VIAL IM PRN ×3 (09:34→17:44)
--- NOTE | 2020-01-25 09:35 | Progress Note - Hospitalist ---
Subjective HPI/CC On Admission Date Seen by Provider: Jan 25, 2020 Time Seen by Provider: 09:33 Patient is half-way resident with history of advanced dementia who typically is reported as pleasant and cooperative. She became quite agitated screaming obscenities and was unconsolable for unknown reason. She is unable to give any history and was writhing in bed a threat to her self as well as likely staff. Emergency room physician gave Ativan initially followed by Kong but the patient remained combative and agitated. She had been diagnosed with Covid in October but did not require hospitalization at that time and was not having any infectious symptoms according to the emergency room physician. She ultimately required mechanical intubation for sedation and was transferred to the intensive care unit. Upon my arrival the patient was on propofol and fentanyl and was resting comfortably. Attempts at decreasing propofol did lead to the patient waking up and attempting to get out of bed and pull her lines out. Subjective/Events-last exam Pt remains sedated on the vent. No complaints at this time per RN. Hopeful to attempt weaning soon. Focused Exam Lactate Level 01/22/20 16:17: Lactic Acid Level 0.81 Objective Exam Vital Signs Vital Signs Date Time Temp Pulse Resp B/P (MAP) Pulse Ox O2 Delivery O2 Flow Rate FiO2 01/25/20 08:36 93 96/68 01/25/20 08:20 36.6 01/25/20 06:47 18 92 35 01/25/20 06:00 Mechanical Ventilator 25.00 Capillary Refill : Less Than 3 Seconds General Appearance: Chronically ill Respiratory: Lungs Clear, Other (on vent) Cardiovascular: Regular Rate, Rhythm, No Murmur Gastrointestinal: Normal Bowel Sounds, Non Tender, Soft Neurologic/Psychiatric: Other (sedated, appears comfortable) Results/Procedures Lab Laboratory Tests 01/25/20 03:13 Patient resulted labs reviewed. Assessment/Plan Assessment and Plan Assess & Plan/Chief Complaint Agitated delirium with inability to protect airway Advanced dementia Remains on vent Pulm consulted, appreciate recs Hopeful to wean later today Continue Seroquel Bilateral pneumonia Had COVID in October, CXR findings likely residual from that Hypothyroidism Continue Synthroid DVT ppx: Lovenox Critical Care Ventilator Management Clinical Quality Measures DVT/VTE Risk/Contraindication: Risk Factor Score Per Nursin RFS Level Per Nursing on Admit: 4+=Very High JOSE DUNNE MD Jan 25, 2020 09:35
--- NOTE | 2020-01-25 09:45 | NUR ---
THIS NURSE UPDATED BROTHER ON PT CONDITION.
[2020-01-25 10:51] LABS: ABG BASE EXCESS -2.1 MMOL/L (-2.5-2.5); ABG OXYGEN SATURATION 94 % (94-100); ABG PCO2 37 MMHG (35-45); ABG PH 7.39 (7.37-7.43); ABG PO2 70 MMHG (79-93); ABG TCO2 23.4 MMOL/L (21.0-31.0)
[2020-01-25 10:52] LABS: ALLENS TEST YES-POS; INSPIRED O2 35%; PATIENT TEMP 36.4; VENTILATOR YES
[2020-01-25 13:04] VITALS: BP 114/70
--- NOTE | 2020-01-25 13:53 | NUR ---
THIS NURSE NOTIFIED DR VERDUZCO PT IS READY TO GO TO [facility]. [facility] NEEDS MED LIST AND DISCHARGE SUMMARY. DR VERDUZCO ORDERED TO CONTINUE ALL INPATIENT MEDICATIONS. THIS NURSE FAXED OVER MED LIST TO [facility]. WILL CONTINUE TO WAIT FOR DISCHARGE SUMMARY.
--- NOTE | 2020-01-25 14:01 | Diagnostic Imaging Report ---
Indication: Tube placement. Compared to 12:15 earlier the same date. Findings: ET tube tip retracted now at the mid thoracic trachea in good alignment. Lungs are symmetrically expanded. Bilateral pulmonary parenchymal opacities unchanged. Impression: ET tube repositioned in good alignment mid thoracic trachea. OG remains in the stomach. Pulmonary infiltrates or edema again noted. Dictated by: Dictated on workstation # [id number]
--- NOTE | 2020-01-25 14:20 | NUR ---
THIS NURSE CALLED REPORT TO KATHI SHAPRE AT [facility].
--- NOTE | 2020-01-25 15:15 | NUR ---
CM/SS: [facility] has accepted the pt for admission. Pt is able to transfer to the [facility] on today. Kim (Taiwo) has spoke with son - Hal and he is ok with pt being moved to [facility]. He would also like for pt to be discharged closer to where he lives. He is ok that she be able to return back to [facility] if there is not placement closer to where he lives. Telephone call to [facility] - Maryana) [phone] - She is ok to be able to take the pt back when she is discharged for [facility]. This worker will follow up with son as to the information at [facility]. Telephone Call to Hal [phone] - Message left for him to return the call - related to the pt's bed at facility and acceptance at [facility].
--- NOTE | 2020-01-25 15:35 | NUR ---
DR VERDUZCO NOTIFIED THIS NURSE HE WILL BE CALLING REPORT TO [facility].
[2020-01-25] MEDS ORDERED: NS IV 1000 ML 0 ML ONE (18:08)
[2020-01-25 18:10] VITALS: BP 124/72
--- NOTE | 2020-01-25 21:24 | ED General ---
General Chief Complaint: Altered Mental Status Stated Complaint: AGITATED DELIRIUM, PNEUMONIA Nursing Triage Note: PT AR[facility], DECREASED SPO2, ET "BLOOD IN BRIEF." EMS ADVISE INITIAL SPO2 ON SCENE 90% VIA RA. EMS ACCESSED 20G IV TO L HAND ET INITIATED 2L O2 VIA NC. PT ARRIVES WITH REPETITIVE, PRESSURED SPEECH STATING, "MOMMA, MOMMA, MOMMA." PT RESTLESS, AGITATED, ET THRASHING EXTREMITIES. UNABLE TO OBTAIN INITIAL SPO2 D/T PT BEHAVIORS ET THRASHING OF EXTREMITIES. PT NOTED TO BE DIAPHORETIC ET FLUSHED. 10L VIA OXYMASK APPLIED. FACILITY REPORT [facility] AFTER TESTING + ON . Nursing Sepsis Screen: Possible Severe Sepsis Risk Source of Information: EMS, Long Term Records Exam Limitations: Physical Impairments History of Present Illness Date Seen by Provider: Jan 21, 2020 Time Seen by Provider: 12:39 Initial Comments To ER by EMS from [facility] with reports of altered mental status. She had Covid diagnosed on 12/31/2019. Upon EMS arrival oxygen saturation 90% on room air, patient has a known history of bipolar and Alzheimer's but is medicated and is typically conversational and alert and fairly oriented. Upon their arrival she was moaning and screaming and flailing repeating "fuck, fuck, fuck" Timing/Duration: 4-6 Hours Severity: Moderate Allergies and Home Medications Allergies Coded Allergies: No Known Drug Allergies (Unverified , 01/21/20) Home Medications Acetaminophen 325 Mg Capsule, 650 MG PO TID PRN for PAIN-MILD (1-4), (Reported) Acetaminophen 325 Mg Capsule, 650 MG PO Q4H PRN for T>99.0, (Reported) Alprazolam 0.25 Mg Tablet, 0.25 MG PO TID, (Reported) Ascorbate Calcium 500 Mg Tablet, 500 MG PO DAILY, (Reported) Aspirin 81 Mg Tab.chew, 81 MG PO DAILY, (Reported) Cholecalciferol (Vitamin D3) 125 Mcg Capsule, 125 MCG PO BID, (Reported) Famotidine 20 Mg Tablet, 20 MG PO BID, (Reported) Hydroxyzine HCl 10 Mg Tablet, 10 MG PO BID, (Reported) Levothyroxine Sodium 125 Mcg Capsule, 125 MCG PO DAILY, (Reported) Ladera Carbonate 300 Mg Tablet, 300 MG PO BID, (Reported) Loperamide HCl 2 Mg Capsule, 2-4 MG PO UD PRN for DIARRHEA, (Reported) TAKE 2 (2MG) CAPS AFTER 1ST LOOSE STOOL AND MAY TAKE 1 TAB NEEDED FOR ADDITIONAL LOOSE STOOLS. MAX IS 4 DOSES PER DAY Loratadine 10 Mg Tablet, 10 MG PO DAILY, (Reported) Melatonin 5 Mg Tablet, 5 MG PO HS, (Reported) Mirtazapine 15 Mg Tablet, 15 MG PO HS, (Reported) Pantoprazole Sodium 40 Mg Tablet.dr, 40 MG PO DAILY, (Reported) GIVE 30 MINUTES PRIOR TO AM MEAL Phenazopyridine HCl 100 Mg Tablet, 100 MG PO TIDWM, (Reported) Quetiapine Fumarate 50 Mg Tablet, 50 MG PO DAILY, (Reported) Trazodone HCl 150 Mg Tablet, 75 MG PO HS, (Reported) Zinc Amino Acid Chelate 50 Mg Tablet, 50 MG PO DAILY, (Reported) Patient Home Medication List Home Medication List Reviewed: Yes Review of Systems Review of Systems Constitutional: see HPI, other (Unable to obtain due to altered mental status) Past Kovnkzq-Hdgmyh-Ltfhiy Hx Past Med/Social Hx: Reviewed and Corrections made Patient Social History Alcohol Use: Denies Use Recreational Drug Use: No Smoking Status: Unknown if Ever Smoked 2nd Hand Smoke Exposure: No Recent Foreign Travel: No Contact w/Someone Who Travel: No Recent Infectious Disease Expo: Yes Recent Hopitalizations: No Physical Abuse: No Sexual Abuse: No Immunizations Up To Date Date of Influenza Vaccine: Nov 10, 2018 Seasonal Allergies Seasonal Allergies: No Past Medical History Surgeries: No (UNKNOWN ) Cardiac: Yes High Cholesterol Neurological: Yes Dementia Gastrointestinal: Yes Gastroesophageal Reflux Endocrine: Yes Hypothyroidsim HEENT: Yes Cataract Psychosocial: Yes Anxiety, Bipolar, Personality Disorder Family Medical History Patient reports no known family medical history. Physical Exam Vital Signs Vital Signs - First Documented 01/21/20 01/21/20 01/21/20 12:15 17:05 17:15 Temp 36.7 Pulse 123 Resp 26 B/P (MAP) 129/101 (110) Pulse Ox 99 O2 Delivery OxyMask O2 Flow Rate 10.00 FiO2 50 Capillary Refill : Less Than 3 Seconds Height, Weight, BMI Height: '" Weight: lbs. oz. kg; 25.82 BMI Method: General Appearance: WD/WN, Other (Appears older than stated age, flailing about the bed, trying to climb over the rails and takes 3 staff members to restrain her to the bed. She is not making any sense, grabbing at her oxygen mask, repeats "mama mama and "fuck you". She was given 2 mg of IV lorazepam with minimal improvement in symptoms. After 5 minutes additional 2 mg was given. Minimal improvement. She also received 2.5 mg of IV haloperidol with minimal improvement. She was then given 20 mg of intramuscular Geodon, continue to flail about the bed moaning and pulling oxygen and cardiac monitoring leads off. Decided to proceed with intubation) Eyes: Bilateral Eye Normal Inspection, Bilateral Eye PERRL, Bilateral Eye EOMI HEENT: PERRL/EOMI, TMs Normal Neck: Full Range of Motion, Normal Inspection Respiratory: No Accessory Muscle Use, No Respiratory Distress Cardiovascular: Normal Peripheral Pulses, Tachycardia Gastrointestinal: Non Tender, Soft Extremity: Normal Capillary Refill, Normal Inspection Neurologic/Psychiatric: Alert, Disoriented Skin: Normal Color, Warm/Dry Procedures/Interventions Date of ETT Placement: Jan 21, 2020 Time of ETT Placement: 1306 Tube Size: 7.50 Medications: Etomidate, Rocuronium Breath Sounds after Intubation: bilateral-equal Intubation Complications: no complications Post Intubation Xray: Yes Progress/Results/Core Measures Suspected Sepsis Recent Fever Within 48 Hours: No Infection Criteria Present: Documented Infection New/Unexplained Altered Menta: Yes Sepsis Screen: Possible Severe Sepsis Risk SIRS Temperature: Pulse: 59 Respiratory Rate: 13 Laboratory Tests 01/23/20 04:35: White Blood Count 10.4 01/24/20 03:05: White Blood Count 10.7 01/25/20 03:13: White Blood Count 8.7 Blood Pressure 124 /72 Mean: 89 Laboratory Tests 01/23/20 04:35: Creatinine 0.71, Platelet Count 329 01/24/20 03:05: Creatinine 0.66, Platelet Count 320 01/25/20 03:13: Creatinine 0.67, Platelet Count 404H Results/Orders Lab Results Laboratory Tests Test 01/23/20 23:19 01/24/20 03:05 01/24/20 04:13 01/24/20 06:45 Range/Units Glucometer 99 70-110 MG/DL White Blood Count 10.7 4.3-11.0 10^3/uL Red Blood Count 3.44 L 3.80-5.11 10^6/uL Hemoglobin 9.5 L 11.5-16.0 g/dL Hematocrit 33 L 35-52 % Mean Corpuscular Volume 97 80-99 fL Mean Corpuscular Hemoglobin 28 25-34 pg Mean Corpuscular Hemoglobin Concent 28 L 32-36 g/dL Red Cell Distribution Width 15.6 H 10.0-14.5 % Platelet Count 320 130-400 10^3/uL Mean Platelet Volume 10.5 9.0-12.2 fL Immature Granulocyte % (Auto) 1 % Neutrophils (%) (Auto) 77 H 42-75 % Lymphocytes (%) (Auto) 8 L 12-44 % Monocytes (%) (Auto) 12 0-12 % Eosinophils (%) (Auto) 2 0-10 % Basophils (%) (Auto) 0 0-10 % Neutrophils # (Auto) 8.2 H 1.8-7.8 10^3/uL Lymphocytes # (Auto) 0.9 L 1.0-4.0 10^3/uL Monocytes # (Auto) 1.3 H 0.0-1.0 10^3/uL Eosinophils # (Auto) 0.2 0.0-0.3 10^3/uL Basophils # (Auto) 0.0 0.0-0.1 10^3/uL Immature Granulocyte # (Auto) 0.1 0.0-0.1 10^3/uL Sodium Level 144 135-145 MMOL/L Potassium Level 3.6 3.6-5.0 MMOL/L Chloride Level 121 H 98-107 MMOL/L Carbon Dioxide Level 14 L 21-32 MMOL/L Anion Gap 9 5-14 MMOL/L Blood Urea Nitrogen 5 L 7-18 MG/DL Creatinine 0.66 0.60-1.30 MG/DL Estimat Glomerular Filtration Rate > 60 BUN/Creatinine Ratio 8 Glucose Level 110 H 70-105 MG/DL Calcium Level 7.5 L 8.5-10.1 MG/DL Phosphorus Level 3.9 2.3-4.7 MG/DL Magnesium Level 1.9 1.6-2.4 MG/DL B-Type Natriuretic Peptide 147.3 H <100.0 PG/ML Procalcitonin 0.03 <0.10 NG/ML Blood Gas Puncture Site RIGHT RADIAL Blood Gas Patient Temperature 36.3 Arterial Blood pH 7.29 *L 7.37-7.43 Arterial Blood Partial Pressure CO2 36 35-45 MMHG Arterial Blood Partial Pressure O2 72 L 79-93 MMHG Arterial Blood HCO3 17 *L 23-27 MMOL/L Arterial Blood Total CO2 18.3 L 21.0-31.0 MMOL/L Arterial Blood Oxygen Saturation 91 L 94-100 % Arterial Blood Base Excess -8.3 L -2.5-2.5 MMOL/L Pool Test POSITIVE Blood Gas Ventilator Setting YES Blood Gas Inspired Oxygen 35 D-Dimer 1.96 H 0.00-0.49 UG/ML Test 01/24/20 11:44 01/24/20 17:05 01/25/20 03:00 01/25/20 03:13 Range/Units Glucometer 93 105 70-110 MG/DL Blood Gas Puncture Site LEFT RADIAL Blood Gas Patient Temperature NOT INDICATED Arterial Blood pH 7.45 H 7.37-7.43 Arterial Blood Partial Pressure CO2 33 L 35-45 MMHG Arterial Blood Partial Pressure O2 69 L 79-93 MMHG Arterial Blood HCO3 23 23-27 MMOL/L Arterial Blood Total CO2 23.6 21.0-31.0 MMOL/L Arterial Blood Oxygen Saturation 94 94-100 % Arterial Blood Base Excess -0.9 -2.5-2.5 MMOL/L Pool Test YES-POS Blood Gas Ventilator Setting YES Blood Gas Inspired Oxygen 35% White Blood Count 8.7 4.3-11.0 10^3/uL Red Blood Count 3.47 L 3.80-5.11 10^6/uL Hemoglobin 9.8 L 11.5-16.0 g/dL Hematocrit 31 L 35-52 % Mean Corpuscular Volume 91 80-99 fL Mean Corpuscular Hemoglobin 28 25-34 pg Mean Corpuscular Hemoglobin Concent 31 L 32-36 g/dL Red Cell Distribution Width 15.5 H 10.0-14.5 % Platelet Count 404 H 130-400 10^3/uL Mean Platelet Volume 10.3 9.0-12.2 fL Immature Granulocyte % (Auto) 1 % Neutrophils (%) (Auto) 74 42-75 % Lymphocytes (%) (Auto) 14 12-44 % Monocytes (%) (Auto) 9 0-12 % Eosinophils (%) (Auto) 2 0-10 % Basophils (%) (Auto) 0 0-10 % Neutrophils # (Auto) 6.5 1.8-7.8 10^3/uL Lymphocytes # (Auto) 1.2 1.0-4.0 10^3/uL Monocytes # (Auto) 0.8 0.0-1.0 10^3/uL Eosinophils # (Auto) 0.2 0.0-0.3 10^3/uL Basophils # (Auto) 0.0 0.0-0.1 10^3/uL Immature Granulocyte # (Auto) 0.0 0.0-0.1 10^3/uL Sodium Level 140 135-145 MMOL/L Potassium Level 2.9 L 3.6-5.0 MMOL/L Chloride Level 106 98-107 MMOL/L Carbon Dioxide Level 19 L 21-32 MMOL/L Anion Gap 15 H 5-14 MMOL/L Blood Urea Nitrogen 3 L 7-18 MG/DL Creatinine 0.67 0.60-1.30 MG/DL Estimat Glomerular Filtration Rate > 60 BUN/Creatinine Ratio 4 Glucose Level 95 70-105 MG/DL Calcium Level 7.6 L 8.5-10.1 MG/DL Phosphorus Level 2.9 2.3-4.7 MG/DL Magnesium Level 1.6 1.6-2.4 MG/DL Test 01/25/20 10:43 01/25/20 12:02 01/25/20 12:35 Range/Units Blood Gas Puncture Site LR Blood Gas Patient Temperature 36.4 Arterial Blood pH 7.39 7.37-7.43 Arterial Blood Partial Pressure CO2 37 35-45 MMHG Arterial Blood Partial Pressure O2 70 L 79-93 MMHG Arterial Blood HCO3 22 L 23-27 MMOL/L Arterial Blood Total CO2 23.4 21.0-31.0 MMOL/L Arterial Blood Oxygen Saturation 94 94-100 % Arterial Blood Base Excess -2.1 -2.5-2.5 MMOL/L Pool Test YES-POS Blood Gas Ventilator Setting YES Blood Gas Inspired Oxygen 35% Glucometer 117 H 70-110 MG/DL Potassium Level 3.5 L 3.6-5.0 MMOL/L Vital Signs/I&O 01/25/20 01/25/20 01/25/20 01/25/20 10:00 11:00 11:59 12:00 Pulse 67 60 60 60 Resp 18 17 17 B/P (MAP) 104/70 (81) 108/69 (82) 112/72 (85) Pulse Ox 91 93 93 O2 Delivery Mechanical Ventilator Mechanical Ventilator Mechanical Ventilator O2 Flow Rate 25.00 25.00 25.00 01/25/20 01/25/20 01/25/20 01/25/20 12:12 13:00 13:04 14:00 Pulse 56 67 86 Resp 17 18 26 B/P (MAP) 110/72 110/76 (87) 124/75 (91) Pulse Ox 96 92 94 O2 Delivery Mechanical Ventilator Mechanical Ventilator O2 Flow Rate 25.00 25.00 FiO2 35 01/25/20 01/25/20 01/25/20 01/25/20 15:00 15:37 15:38 16:00 Pulse 65 60 Resp 15 17 B/P (MAP) 123/77 (92) 123/73 123/74 126/73 (90) Pulse Ox 95 94 O2 Delivery Mechanical Ventilator Mechanical Ventilator O2 Flow Rate 25.00 25.00 01/25/20 01/25/20 01/25/20 01/25/20 16:15 17:00 18:00 18:10 Temp 36.6 36.6 Pulse 57 59 59 Resp 17 13 13 B/P (MAP) 128/73 (91) 124/72 (89) 124/72 Pulse Ox 95 94 94 O2 Delivery Mechanical Ventilator Mechanical Ventilator Mechanical Ventilator O2 Flow Rate 25.00 25.00 FiO2 35 Capillary Refill : Less Than 3 Seconds Blood Pressure Mean: 89 Point of Care Testing Finger Stick Blood Glucose: 116 Blood Glucose Action Taken: RN INFORMED Departure Communication (Admissions) 1240-oxygen saturation 95% on 4 L. Heart rate is 1 30-1 40. She is afebrile at 97.6. She moves all extremities. 1420-vitals are as follows, heart rate 103 sinus, SPO2 99% on the ventilator respiratory rate of 18 blood pressure 115/75. Ventilator settings are size 7 endotracheal tube 23 cm at the teeth tidal volume of 450 mL PEEP of 7 rate of 18 and 40% FiO2. She is on propofol drip at 20 mics per kilo per minute she is on a Precedex drip as well and still biting on the tube and attempting to grab at the endotracheal tube. Gave a 100 mcg fentanyl push which did help with sedation. I then called pharmacy for a fentanyl drip. Impression Primary Impression: Agitated delirium Disposition: ADMITTED INPATIENT Condition: Stable Admissions Decision to Admit Reason: Admit from ER (General) Decision to Admit/Date: Jan 21, 2020 Time/Decision to Admit Time: 14:11 Departure-Patient Inst. Referrals: URMILA NICHOLSON DO (PCP) Primary Care Physician Patient Instructions: Coronavirus Disease 2019 (COVID-19) Overview DERRICK SANCHEZ APRN Jan 25, 2020 21:23
--- NOTE | 2020-01-26 08:56 | Physician Query Clarification ---
PQ-Further Specificity Admission/Discharge Admission Date: Jan 21, 2020 at 16:20 Discharge Date: Jan 25, 2020 at 18:10 Dr. Keith, The medical record reflects the following clinical scenario: History/Risk Factors: agitated delirium, Covid + 12/30, Alzheimer's dementia, pneumonia Clinical Findings: typically pleasant and cooperative now agitated delirium, flailing in bed, pulling lines, diaphoretic et flushed, bibasilar infiltrates, PH 7.28, PC02 23, HC03 11 Treatment: mechanical ventilation, IV Piperacillin Question: Can you further specify the etiology of the agitated delirium per the clinical indicators above? Please document a response in the Progress Notes or Discharge Summary. 1. Alzheimer's dementia with delirium 2. Pneumonia and acute respiratory failure 3. Other, with explanation of the clinical findings. 4. Clinically undetermined, no explanation for the clinical findings. PHYSICIAN RESPONSE Can you specify per above: 1 Please remember a lack of response to the above will prompt a phone page by CDI/Coding staff. In responding to this query, please exercise your independent professional judgment. The purpose of this communication is to more accurately reflect the complexity of your patients condition. The fact that a question is asked does not imply that any particular answer is desired or expected. Thank you for your timely response to this clarification. Requestors name: [employer] THIS PHYSICIAN QUERY FORM IS A PERMANENT PART OF THE MEDICAL RECORD [employer] Jan 26, 2020 08:56 JOSE KEITH MD Jan 26, 2020 16:39
--- NOTE | 2020-01-26 09:05 | Physician Query Clarification ---
PQ-Uncertain Diagnosis Admission/Discharge Admission Date: Jan 21, 2020 at 16:20 Discharge Date: Jan 25, 2020 at 18:10 Dr. Keith, The medical record reflects the following clinical scenario: History/Risk Factors: agitated delirium, alzheimer's dementia, pneumonia, acute respiratory failure Clinical Findings: agitated delirium, flailing about in bed pulling lines, bibasilar infiltrates, PH 7.28, PC02 23, HC03 11 Treatment: Mechanical ventilation, IV Piperacillin Question: Is Covid 19 still a clinically valid diagnosis? Covid 19 positive on 12/30 was documented in the ER and PN with no further documentation in the medical record. Please document a response in Progress Note or Discharge Summary. 1. Yes, clinically valid, Covid still an active condition, condition resolved. 2. No, condition ruled out. Covid resolved prior to this admission. 3. Other, with explanation of clinical findings. 4. Undetermined, no explanation for clinical findings. PHYSICIAN RESPONSE Diagnosis clinically valid: Other, explanation/clinical finding Explanation of clincal finding Likely prolonged ventilation a sequelae of COVID19 but not active case of COVID19 as was diagnosed in October per H&P. Please remember a lack of response to the above will prompt a phone page by CDI/Coding staff. In responding to this query, please exercise your independent professional judgment. The purpose of this communication is to more accurately reflect the complexity of your patients condition. The fact that a question is asked does not imply that any particular answer is desired or expected. Thank you for your timely response to this clarification. Requestors name: [employer] THIS PHYSICIAN QUERY FORM IS A PERMANENT PART OF THE MEDICAL RECORD [employer] Jan 26, 2020 09:05 JOSE KEITH MD Jan 26, 2020 20:16
--- NOTE | 2020-01-26 13:52 | Diagnostic Imaging Report ---
INDICATION: Shortness of breath, altered mental status, COVID positive. TECHNIQUE: Frontal chest obtained at 01:46 p.m. and compared to 02/12/2018. FINDINGS: ET tube tip is in the lower trachea just above the jose juan. NG tube tip is below the film. Heart is normal in size. There are some patchy infiltrates in the right perihilar region and base as well as some milder infiltrate in the left base. There is no pneumothorax or pleural fluid. IMPRESSION: Patchy bilateral infiltrates, right greater than left, compatible with atypical pneumonia. ET tube and NG tube, as above. Dictated by: Dictated on workstation # [id number]
[2020-01-27 08:54] LABS: CLARITY,URINE CLEAR; COLOR,URINE YELLOW; GLUCOSE, URINE (UA) NEGATIVE (NEGATIVE); KETONES,URINE 1+ (NEGATIVE); NITRITE,URINE NEGATIVE (NEGATIVE); PROTEIN,URINE 1+ (NEGATIVE)
[2020-01-27 08:55] LABS: BACTERIA,URINE NEGATIVE /HPF; BILIRUBIN,URINE 1+ (NEGATIVE); LEUKOCYTE ESTERASE ,URINE NEGATIVE (NEGATIVE); SQUAMOUS EPITHELIAL CELL,UR 0-2 /HPF
[2020-01-27 08:56] LABS: AMPHETAMINE SCREEN, URINE NEGATIVE (NEGATIVE); BARBITURATE SCREEN URINE NEGATIVE (NEGATIVE); BENZODIAZEPINES SCREEN URINE POSITIVE (NEGATIVE); CANNABINOID SCREEN, URINE NEGATIVE (NEGATIVE); COCAINE SCREEN URINE NEGATIVE (NEGATIVE); METHADONE STAT NEGATIVE (NEGATIVE); METHAMPHETAMINE SCREEN URINE S NEGATIVE (NEGATIVE); OPIATE SCREEN URINE NEGATIVE (NEGATIVE); OXYCODONE STAT NEGATIVE (NEGATIVE); PROPOXYPHENE STAT NEGATIVE (NEGATIVE); TRICYCLIC ANTIDEPRESSANTS SCRE NEGATIVE (NEGATIVE)
[2020-01-27 09:03] LABS: BASOPHILS # (AUTO) 0.1 10^3/uL (0.0-0.1); BASOPHILS % (AUTO) 0 % (0-10); EOSINOPHILS # (AUTO) 0.1 10^3/uL (0.0-0.3); EOSINOPHILS % (AUTO) 1 % (0-10); HEMATOCRIT 39 % (35-52); HEMOGLOBIN 11.7 G/DL (11.5-16.0); LYMPHOCYTES # (AUTO) 1.1 X 10^3 (1.0-4.0); LYMPHOCYTES % (AUTO) 9 % (12-44); MEAN CORPUSCULAR HEMOGLOBIN 28 PG (25-34); MEAN CORPUSCULAR HGB CONC 30 G/DL (32-36); MEAN CORPUSCULAR VOLUME 92 FL (80-99); MEAN PLATELET VOLUME 10.6 FL (7.4-10.4); MONOCYTES # (AUTO) 1.4 X 10^3 (0.0-1.0); MONOCYTES % (AUTO) 11 % (0-12); NEUTROPHILS # (AUTO) 10.5 X 10^3 (1.8-7.8); NEUTROPHILS % (AUTO) 79 % (42-75); PLATELET COUNT 648 10^3/uL (130-400); WHITE BLOOD COUNT 13.3 10^3/uL (4.3-11.0)
[2020-01-27 09:05] LABS: BILIRUBIN,TOTAL 0.3 MG/DL (0.1-1.0); BUN/CREATININE RATIO 16; CALCIUM 9.9 MG/DL (8.5-10.1); CARBON DIOXIDE 21 MMOL/L (21-32); CHLORIDE 106 MMOL/L (98-107); CREATININE SERUM 0.82 MG/DL (0.60-1.30); GFR ESTIMATED > 60; GLUCOSE 112 MG/DL (70-105); POTASSIUM 4.2 MMOL/L (3.6-5.0); SODIUM 140 MMOL/L (135-145)
[2020-01-27 09:06] LABS: ALANINE AMINOTRANSFERASE 45 U/L (0-55); ALBUMIN 4.1 GM/DL (3.2-4.5); ALKALINE PHOSPHATASE 188 U/L (40-136); TOTAL PROTEIN 7.8 GM/DL (6.4-8.2)
[2020-01-27 09:13] LABS: ABG BASE EXCESS -1.7 MMOL/L (-2.5-2.5); ABG OXYGEN SATURATION 87 % (94-100); ABG PCO2 42 MMHG (35-45); ABG PH 7.36 (7.37-7.43); ABG PO2 60 MMHG (79-93); ABG TCO2 24.3 MMOL/L (21.0-31.0); ALLENS TEST YES-POS; INSPIRED O2 40%; PATIENT TEMP 36.7; VENTILATOR YES
== END 2020-01-25 18:10 | DRG 56 ==
LOC: ER 12:21 → ICU 16:20
PROVIDERS: ADMIT Internal Medicine; ATTEND Family Medicine
PROC: 5A1955Z Respiratory Ventilation, Greater than 96 Consecutive Hours (ICD-10-PCS; principal; 2020-01-21)
PROC: 0BH17EZ Insertion of Endotracheal Airway into Trachea, Via Natural or Artificial Opening (ICD-10-PCS; 2020-01-21)
DX: G30.8 Other Alzheimer's disease (principal); J18.9 Pneumonia, unspecified organism; J96.00 Acute respiratory failure, unspecified whether with hypoxia or hypercapnia; F02.81 Dementia in other diseases classified elsewhere, unspecified severity, with behavioral disturbance; F05 Delirium due to known physiological condition; E87.2 Acidosis; E78.00 Pure hypercholesterolemia, unspecified; K21.9 Gastro-esophageal reflux disease without esophagitis; E03.9 Hypothyroidism, unspecified; F41.9 Anxiety disorder, unspecified; F31.9 Bipolar disorder, unspecified; F60.9 Personality disorder, unspecified; B94.8 Sequelae of other specified infectious and parasitic diseases
CPT/HCPCS: 31500; 36415; 51702; 70450; 71045; 71275; 74174; 80048; 80053; 80306; 81000; 82805; 82962; 83605; 83735; 83880; 84100; 84132; 84145; 84439; 84443; 85025; 85027; 85379; 86141; 87040; 87070; 87081; 87205; 93005; 94003; 94640; 94799; 99291; 99292